=== PATIENT | female | born 1970 | race Caucasian/White ===

== ENCOUNTER 2020-12-28 06:45 | Inpatient (IN) ==
[2020-12-28 07:09] LABS: ABG BASE EXCESS 5.4 mmol/L (-2.0-2.0)
[2020-12-28 07:10] LABS: ABG HCO3 32.6 mmol/L (22-26)
[2020-12-28 07:11] LABS: ABG ALLEN TEST POS
--- NOTE | 2020-12-28 07:29 | DR.SOBA ---
HPI Time Seen Time Seen by Provider: 12/28/20 07:17 Primary Care Physician Primary Care Physician: nfd Complaints Chief Complaint Doctors Comments: left [facility] from [facility] yesterday after 2 day stay for PNA, sepsis. O2 sats 73% on arrival. Chief Complaint:: PT STATED SHE WAS HOSPITALIZED IN [place] AND LEFT BECAUSE SHE STATED "THEY WERE CRAZY AND WERE MEAN". PT SAID SHE WAS HOSPITALIZED FOR SEPSIS AND PNEUMONIA. COVID-19 Coronavirus symptoms experienced: Coughing and Shortness of Breath Reviewed Nurses Notes Reviewed: Yes Source History Provided: Patient Mode of Arrival Mode of Arrival: Wheelchair Timing Onset of Chief Complaint: 12/24/20 PMH PMH Past Medical History: No Past Surgical History: Yes Surgical History: Family History History of Family Medical Conditions: No Family Medical History: Cancer Social History Does patient currently use any type of tobacco product: No Have you used tobacco products in the last 12 months: No Type of Tobacco Use: MARIJUANA Does any household member use tobacco: No Alcohol Use: Occasionally Do you use any recreational Drugs:: No Lives With: Family Lives Where: Home Infectious screening In the last 2 months have you had wt loss of >10#?: NO Have you had fever, night sweats or hemotysis?: No Have you traveled outside the country in the last 6 months?: No Isolation: Standard ROS Review of Systems Constitutional: See HPI Eyes: No Symptoms Reported ENTM: No Symptoms Reported Respiratoy: See HPI Cardiovascular: No Symptoms Reported Gastrointestinal/Abdominal: No Symptoms Reported Genitourinary: No Symptoms Reported Neurological: No Symptoms Reported Musculoskeletal: No Symptoms Reported Integumentary: No Symptoms Reported Hematologic/Lymphatic: No Symptoms Reported Endocrine: No Symptoms Reported All Other Systems: Reviewed and Negative PE Vital Signs Vitals: Pulse Rate 100 Respiratory Rate 26 Blood Pressure [Left Arm] 155/86 Blood Pressure 175/95 O2 Sat by Pulse Oximetry 85 General General Appearance: Alert, Anxious and In Distress Head Head Exam: Normal Inspection and Atraumatic Eyes Eye exam: Normal Appearance ENT ENT Exam: Normal Exam Neck Neck Exam: Normal Inspection Respiratory Respiratory Exam: negative Chest Wall Tenderness and Respiratory Distress Respiratory Exam: Bilateral: Rales, Bilateral: Rhonchi and Bilateral: Decreased Breath Sounds Cardiovascular Cardiovascular Exam: Regular Rate and Normal Heart Sounds Abdominal Exam Abdominal Exam: Normal Inspection, Normal Bowel Sounds and Soft; negative Tenderness and Guarding Extremities Extremities Exam: Normal Inspection and Full ROM Back Back Exam: Normal Inspection and Full ROM Neurologic Neurological Exam: Alert and Oriented X3 Skin Skin Exam: Warm, Dry and Intact ROR Labs Reviewed Result Diagrams: 12/28/20 06:55 12/28/20 06:55 Laboratory: WBC 19.5 X10^3/uL (3.6-10.0) H 12/28/20 06:55 RBC 4.66 X10^6/uL (3.5-5.4) 12/28/20 06:55 Hgb 12.2 g/dL (12.0-16.0) 12/28/20 06:55 Hct 39.3 % (36.0-47.0) 12/28/20 06:55 MCV 84.4 fL (80.0-100.0) 12/28/20 06:55 MCH 26.1 pg (27.0-34.0) L 12/28/20 06:55 MCHC 31.0 g/dL (33.0-35.0) L 12/28/20 06:55 RDW 15.9 % (11.6-16.5) 12/28/20 06:55 Plt Count 242 X10^3/uL (150.0-450.0) 12/28/20 06:55 MPV 9.2 fL (7.4-11.0) 12/28/20 06:55 Neut % (Auto) 91.7 % (42.0-75.0) H 12/28/20 06:55 Lymph % (Auto) 2.1 % (21.0-51.0) L 12/28/20 06:55 [place] % (Auto) 5.4 % (0.0-13.0) 12/28/20 06:55 Eos % (Auto) 0.2 % (0.9-2.9) L 12/28/20 06:55 Baso % (Auto) 0.6 % (0.2-1.0) 12/28/20 06:55 Neut # (Auto) 17.8 x10^3/uL (2.2-4.8) H 12/28/20 06:55 Lymph # (Auto) 0.4 X10^3/uL (1.3-2.9) L 12/28/20 06:55 [place] # (Auto) 1.1 x10^3/uL (0.3-0.8) H 12/28/20 06:55 Eos # (Auto) 0.0 x10^3/uL (0.0-0.2) 12/28/20 06:55 Baso # (Auto) 0.1 X10^3/uL (0.0-0.1) 12/28/20 06:55 Absolute Nucleated RBC 0.1 /100WBC 12/28/20 06:55 Sample Site Lr 12/28/20 07:02 ABG pH 7.350 (7.35-7.45) 12/28/20 07:02 ABG pCO2 59.0 mmHg (35.0-45.0) H* 12/28/20 07:02 ABG pO2 48.0 mmHg (80.0-100.0) L* 12/28/20 07:02 ABG HCO3 32.6 mmol/L (22-26) H* 12/28/20 07:02 ABG O2 Saturation 81.0 % (90-100) L* 12/28/20 07:02 ABG Base Excess 5.4 mmol/L (-2.0-2.0) H 12/28/20 07:02 Raman Test Pos 12/28/20 07:02 A-a Gradient 28.0 mmHg 12/28/20 07:02 FiO2 21.0 12/28/20 07:02 Blood Gas Comments Pt iona well cdn 12/28/20 07:02 Influenza Type A Ag Negative-presumptive (NEGATIVE) 12/28/20 07:38 Influenza Type B Ag Negative-presumptive (NEGATIVE) 12/28/20 07:38 Opioid Opioid Risk Tool Total: 0 Total Score Risk Category: Low Risk Copyright: Vito GONZALEZ predicting aberrant behaviors Diagnosis Discharge Problem: Pneumonia, Dyspnea ADDITIONAL NOTES Additional Notes Additional Notes: handed off to dr lutz
--- NOTE | 2020-12-28 07:30 | RAD ---
HISTORYSOBSTUDYCHEST, 1 VIEWCOMPARISONNoneTECHNIQUEAP view of the chestFINDINGSCardiac and mediastinal contours are within normal limits. Airspace opacity in the right mid and upper lung. No discernible pleural effusion or pneumothorax. Soft tissue attenuation limits evaluation.IMPRESSIONLarge airspace opacity in the right mid and upper lung may represent pneumonia but neoplasm is not excluded. Recommend follow-up to document resolution.Electronically signed by: Bryan Gauthier (December 28, 2020 07:27:45)
[2020-12-28] MEDS ORDERED: DUONEB 0.5 MG/3 MG (3 mL) NEB ONE ×4 (07:38→23:46)
[2020-12-28] MEDS ORDERED: SALINE 0.9% 3 ML NEB TX ONE (07:39)
[2020-12-28] MEDS ORDERED: SALINE 0.9% 3 ML NEB TX NEB ONE ×3 (07:44)
[2020-12-28 07:52] LABS: BASOPHILS # (AUTO) 0.1 X10^3/uL (0.0-0.1); BASOPHILS % (AUTO) 0.6 % (0.2-1.0); EOSINOPHILS % (AUTO) 0.2 % (0.9-2.9); HEMATOCRIT 39.3 % (36.0-47.0); HEMOGLOBIN 12.2 g/dL (12.0-16.0); LYMPHOCYTES # (AUTO) 0.4 X10^3/uL (1.3-2.9); LYMPHOCYTES % (AUTO) 2.1 % (21.0-51.0); MEAN CORPUSCULAR HEMOGLOBIN 26.1 pg (27.0-34.0); MEAN CORPUSCULAR VOLUME 84.4 fL (80.0-100.0); MEAN PLATELET VOLUME 9.2 fL (7.4-11.0); MONOCYTES # (AUTO) 1.1 x10^3/uL (0.3-0.8); MONOCYTES % (AUTO) 5.4 % (0.0-13.0); NEUTROPHILS # (AUTO) 17.8 x10^3/uL (2.2-4.8); NEUTROPHILS % (AUTO) 91.7 % (42.0-75.0); PLATELET COUNT 242 X10^3/uL (150.0-450.0); RED BLOOD COUNT 4.66 X10^6/uL (3.5-5.4); RED CELL DISTRIBUTION WIDTH 15.9 % (11.6-16.5); WHITE BLOOD COUNT 19.5 X10^3/uL (3.6-10.0)
[2020-12-28] MEDS ORDERED: ROCEPHIN 1 GRAM IV PREMIX 1 G/50 ML IV.SOLN. IV ONE ×2 (07:53→08:13)
[2020-12-28 08:01] LABS: BLOOD UREA NITROGEN 28 mg/dL (7-18); CALCIUM 8.9 mg/dL (8.5-10.1); CARBON DIOXIDE 28.9 mmol/L (21-32); CHLORIDE 103 mmol/L (98-107); SODIUM 141 mmol/L (136-145); TROPONIN I < 0.02 ng/mL (0-1.5); eGFR NON BLACK RACES 56 (>60)
[2020-12-28 08:05] LABS: ALANINE AMINOTRANSFERASE 25 Units/L (12-78); ALBUMIN 2.1 g/dL (3.4-5.0); ALKALINE PHOSPHATASE 106 Units/L (46-116); ASPARTATE AMINO TRANSFERASE 26 Units/L (15-37); CKMB % 0.8 % (<4); COR CA(FOR HYPOALB) 10.4 mg/dL (8.5-10.1); CREATINE KINASE 119 Units/L (26-192); CREATINE KINASE MB < 1.0 ng/mL (0-4.0); MAGNESIUM 2.2 mg/dL (1.7-2.9); TOTAL PROTEIN 7.1 g/dL (6.4-8.2)
[2020-12-28 08:24] LABS: BAND NEUTROPHILS % 26 % (0-10); METAMYELOCYTES % 3; PLATELET MORPHOLOGY COMMENT NORMAL (NORMAL)
[2020-12-28] MEDS ORDERED: ZITHROMAX INJ 500 MG VIAL 500 MG in NS 250 ML IV 250 ML IV SCH (08:28)
[2020-12-28] MEDS ORDERED: SOLU-Medrol 125 MG VIAL IVP ONE (08:36)
[2020-12-28] MEDS ORDERED: NS 250 ML IV 250 ML IV ONE ×2 (08:57→11:16)
[2020-12-28] MEDS ORDERED: ZITHROMAX INJ 500 MG VIAL IV ONE (08:57)
[2020-12-28] MEDS ORDERED: SOLU-Medrol 125 MG VIAL ONE (08:57)
[2020-12-28] MEDS ORDERED: NS 1000 ML 1,000 ML ONE (10:02)
[2020-12-28] MEDS: NS 1000 ML 1,000 ML IV SCH ×2 (10:04→20:25)
[2020-12-28] MEDS: ZOSYN VIAL 4.5 GRAMS 4.5 G in NS 100 ML IV + SPIKE MINIBAG* 100 ML IV SCH ×3 (11:18→21:29)
[2020-12-28] MEDS: DUONEB 0.5 MG/3 MG (3 mL) NEB SCH ×3 (12:56→21:33)
[2020-12-28] MEDS: NORVASC TAB 10 MG PO SCH (14:35)
[2020-12-28] MEDS: NICOTINE PATCH TD SCH (14:35)
[2020-12-28] MEDS: NORCO 5/325 MG TAB PO PRN ×2 (14:36→21:30)
--- NOTE | 2020-12-28 14:50 | DR.H&P ---
H&P History & Physical for Day of: H&P Date: 12/28/20 Chief Complaint Chief Complaint: Fever, chills Shortness of breath Allergies Allergies Allergy/AdvReac Type Severity Reaction Status Date / Time No Known Drug Allergies Allergy Verified 03/02/18 11:53 History of Present Illness History of Present Illness: Pt is a 50 year old female with past medical history of Hypertension, SUKUMAR, presenting with symptoms of shortness of fever, chills, and shortness of breath that has been progressively getting worse for the past week. Pt states symptoms started last Sunday and got significantly worse over the weekend. She went to [facility] yesterday and was admitted for pneumonia. Pt left AMA from hospital early this morning due to concerns stating "they were crazy and were mean". Pt came to [facility] ED due to dyspnea and shortness of breath. Labs/imaging: Wbc 19.5, Hgb 12.2, Plt 242, Na 144, K 4.2, Creatinine 0.91, Glucose 105, D-dimer 3.73, LA 1.1, BNP 97.7, Flu and COVID-19 negative, Sputum culture pending, ABG:pH 7.35, pCO2 59, pO2 48, HCO3 32, O2 sat 81% on room air. CXR: Large airspace opacity in the right mid and upper lung may represent pneumonia but neoplasm is not excluded. Recommend follow-up to document resolution. Pt had elevated D-dimer and has had CTA of chest at [facility] yesterday that was negative for pulmonary embolus and showed diffuse bilateral infiltrates. Will start on antibiotics Levaquin and Zosyn, scheduled Bronchodilators, supplemental O2. Pt is hypertensive, start on norvasc. Will continue to monitor and follow up labs/imaging in the morning. Past Medical History Past Medical History: Hypertension and Sleep Apnea Past Surgical History Surgical History: Family History Family Medical History: Cancer Social History Does patient currently use any type of tobacco product: Yes Have you used tobacco products in the last 12 months: No Type of Tobacco Use: Cigarettes How many years tobacco product used: 30 Does any household member use tobacco: No Alcohol Use: Occasionally Drug Use: Marijuana Medications Home Medications: No Known Drug Allergies Allergy (Verified 03/02/18 11:53) Labs Result Diagrams: 12/29/20 04:30 12/29/20 04:30 Labs: Laboratory WBC 19.5 X10^3/uL (3.6-10.0) H 12/28/20 06:55 RBC 4.66 X10^6/uL (3.5-5.4) 12/28/20 06:55 Hgb 12.2 g/dL (12.0-16.0) 12/28/20 06:55 Hct 39.3 % (36.0-47.0) 12/28/20 06:55 MCV 84.4 fL (80.0-100.0) 12/28/20 06:55 MCH 26.1 pg (27.0-34.0) L 12/28/20 06:55 MCHC 31.0 g/dL (33.0-35.0) L 12/28/20 06:55 RDW 15.9 % (11.6-16.5) 12/28/20 06:55 Plt Count 242 X10^3/uL (150.0-450.0) 12/28/20 06:55 Plt Count Comment Adequate (ADEQUATE) 12/28/20 06:55 MPV 9.2 fL (7.4-11.0) 12/28/20 06:55 Neut % (Auto) 91.7 % (42.0-75.0) H 12/28/20 06:55 Lymph % (Auto) 2.1 % (21.0-51.0) L 12/28/20 06:55 [place] % (Auto) 5.4 % (0.0-13.0) 12/28/20 06:55 Eos % (Auto) 0.2 % (0.9-2.9) L 12/28/20 06:55 Baso % (Auto) 0.6 % (0.2-1.0) 12/28/20 06:55 Neut # (Auto) 17.8 x10^3/uL (2.2-4.8) H 12/28/20 06:55 Lymph # (Auto) 0.4 X10^3/uL (1.3-2.9) L 12/28/20 06:55 [place] # (Auto) 1.1 x10^3/uL (0.3-0.8) H 12/28/20 06:55 Eos # (Auto) 0.0 x10^3/uL (0.0-0.2) 12/28/20 06:55 Baso # (Auto) 0.1 X10^3/uL (0.0-0.1) 12/28/20 06:55 Absolute Nucleated RBC 0.1 /100WBC 12/28/20 06:55 Total Counted 100 12/28/20 06:55 Neutrophils % (Manual) 55 % (39-76) 12/28/20 06:55 Band Neutrophils % 26 % (0-10) H 12/28/20 06:55 Lymphocytes % (Manual) 6 % (13-43) L 12/28/20 06:55 Monocytes % (Manual) 10 % (4-9) H 12/28/20 06:55 Metamyelocytes % 3 12/28/20 06:55 Plt Morphology Comment Normal (NORMAL) 12/28/20 06:55 RBC Morphology Normal (NORMAL) 12/28/20 06:55 PT 12.8 SECONDS (11.8-14.3) 12/28/20 06:55 INR Target Range - 12/28/20 06:55 INR 1.01 (0.8-1.3) 12/28/20 06:55 APTT 25.0 SECONDS (22.9-36.5) 12/28/20 06:55 PTT Comment - 12/28/20 06:55 D-Dimer 3.33 ug/ml (0.0-0.57) H* 12/28/20 06:55 Sample Site Lr 12/28/20 07:02 ABG pH 7.350 (7.35-7.45) 12/28/20 07:02 ABG pCO2 59.0 mmHg (35.0-45.0) H* 12/28/20 07:02 ABG pO2 48.0 mmHg (80.0-100.0) L* 12/28/20 07:02 ABG HCO3 32.6 mmol/L (22-26) H* 12/28/20 07:02 ABG O2 Saturation 81.0 % (90-100) L* 12/28/20 07:02 ABG Base Excess 5.4 mmol/L (-2.0-2.0) H 12/28/20 07:02 Raman Test Pos 12/28/20 07:02 A-a Gradient 28.0 mmHg 12/28/20 07:02 FiO2 21.0 12/28/20 07:02 Blood Gas Comments Pt iona well cdn 12/28/20 07:02 Sodium 141 mmol/L (136-145) 12/28/20 06:55 Corrected Sodium TNP 12/28/20 06:55 Potassium 4.0 mmol/L (3.5-5.1) 12/28/20 06:55 Chloride 103 mmol/L (98-107) 12/28/20 06:55 Carbon Dioxide 28.9 mmol/L (21-32) 12/28/20 06:55 BUN 28 mg/dL (7-18) H 12/28/20 06:55 Creatinine 1.10 mg/dL (0.55-1.02) H 12/28/20 06:55 Est GFR (MDRD) Af Amer > 60 (>60) 12/28/20 06:55 Est GFR (MDRD) Non-Af 56 (>60) L 12/28/20 06:55 Glucose 101 mg/dL (65-99) H 12/28/20 06:55 POC Glucose (mg/dL) 111 mg/dL (65-99) H 12/28/20 11:53 Lactic Acid 1.1 mmol/L (0.4-2.0) 12/28/20 06:55 Calcium 8.9 mg/dL (8.5-10.1) 12/28/20 06:55 Corrected Calcium 10.4 mg/dL (8.5-10.1) H 12/28/20 06:55 Magnesium 2.2 mg/dL (1.7-2.9) 12/28/20 06:55 Total Bilirubin 0.20 mg/dL (0.2-1.0) 12/28/20 06:55 AST 26 Units/L (15-37) 12/28/20 06:55 ALT 25 Units/L (12-78) 12/28/20 06:55 Alkaline Phosphatase 106 Units/L (46-116) 12/28/20 06:55 Creatine Kinase 119 Units/L (26-192) 12/28/20 06:55 CK-MB (CK-2) < 1.0 ng/mL (0-4.0) 12/28/20 06:55 CK/CKMB % Calc 0.8 % (<4) 12/28/20 06:55 Troponin I < 0.02 ng/mL (0-1.5) 12/28/20 06:55 B-Natriuretic Peptide 97.7 pg/mL (0-79) H 12/28/20 06:55 Total Protein 7.1 g/dL (6.4-8.2) 12/28/20 06:55 Albumin 2.1 g/dL (3.4-5.0) L 12/28/20 06:55 Globulin 5.0 g/dL (2.5-4.5) H 12/28/20 06:55 Albumin/Globulin Ratio 0.4 Ratio (1.1-2.1) L 12/28/20 06:55 Influenza Type A Ag Negative-presumptive (NEGATIVE) 12/28/20 07:38 Influenza Type B Ag Negative-presumptive (NEGATIVE) 12/28/20 07:38 SARS CoV-2 RNA Rapid MINERVA Negative (NEGATIVE) 12/28/20 07:38 Review of Systems Constitutional: Fever and Chills Eyes: No Symptoms Reported ENT: No Symptoms Reported Respiratory: Cough, Shortness of Breath and Wheezing Cardiovascular: No Symptoms Reported Gastrointestinal: No Symptoms Reported Genitourinary: No Symptoms Reported Musculoskeletal: No Symptoms Reported Skin: No Symptoms Reported Neurological: No Symptoms Reported Physical Exam Vital Signs: Temperature 98.0 F Pulse Rate [Apical] 98 Pulse Rate 97 Respiratory Rate 22 Blood Pressure [Left Arm] 165/103 Blood Pressure 186/90 O2 Sat by Pulse Oximetry 92 Oriented: Normal Eyes: Normal Ear: Normal Nose: Normal Throat: Normal Respiratory: Diminished Throughout, Rales Throughout and Wheezes Throughout Cardiovascular: Normal : Normal Auscultation: Bowel Sounds: Normal Palpation: Normal Tenderness: Normal Skin: Normal Musculoskeletal: Normal Psychiatric: Normal Mood Description: Calm and Appropriate Affect: Normal Speech Pattern: Clear and Appropriate Assessment/Plan (1) Pneumonia: Qualifiers: Laterality: bilateral Lung location: unspecified part of lung Pneumonia type: due to unspecified organism Qualified Code(s): J18.9 - Pneumonia, unspecified organism Status: Acute Plan: Supplemental O2, Bronchodilators Antibiotics: Levaquin + Zosyn Review H&P Reviewed: Yes Patient was examined?: Yes
[2020-12-28] MEDS: PULMICORT NEB TX 0.5 MG NEB SCH (21:33)
[2020-12-29] MEDS: DUONEB 0.5 MG/3 MG (3 mL) NEB SCH ×6 (00:14→20:30)
[2020-12-29] MEDS: TYLENOL 325 MG TAB PO PRN (03:08)
[2020-12-29 04:56] LABS: BASOPHILS % (AUTO) 0.1 % (0.2-1.0); HEMATOCRIT 38.5 % (36.0-47.0); HEMOGLOBIN 11.8 g/dL (12.0-16.0); LYMPHOCYTES # (AUTO) 1.2 X10^3/uL (1.3-2.9); LYMPHOCYTES % (AUTO) 7.4 % (21.0-51.0); MEAN CORPUSCULAR HGB CONC 30.7 g/dL (33.0-35.0); MEAN CORPUSCULAR VOLUME 84.7 fL (80.0-100.0); MEAN PLATELET VOLUME 8.9 fL (7.4-11.0); MONOCYTES # (AUTO) 1.2 x10^3/uL (0.3-0.8); MONOCYTES % (AUTO) 7.1 % (0.0-13.0); NEUTROPHILS # (AUTO) 13.8 x10^3/uL (2.2-4.8); NEUTROPHILS % (AUTO) 85.4 % (42.0-75.0); PLATELET COUNT 279 X10^3/uL (150.0-450.0); RED BLOOD COUNT 4.54 X10^6/uL (3.5-5.4); RED CELL DISTRIBUTION WIDTH 15.9 % (11.6-16.5); WHITE BLOOD COUNT 16.2 X10^3/uL (3.6-10.0)
[2020-12-29 05:07] LABS: ALANINE AMINOTRANSFERASE 44 Units/L (12-78); ALKALINE PHOSPHATASE 80 Units/L (46-116); ASPARTATE AMINO TRANSFERASE 30 Units/L (15-37); BLOOD UREA NITROGEN 22 mg/dL (7-18); CALCIUM 8.7 mg/dL (8.5-10.1); CARBON DIOXIDE 30.6 mmol/L (21-32); CHLORIDE 106 mmol/L (98-107); COR CA(FOR HYPOALB) 10.3 mg/dL (8.5-10.1); CREATININE 0.91 mg/dL (0.55-1.02); SODIUM 144 mmol/L (136-145); TOTAL PROTEIN 6.6 g/dL (6.4-8.2); eGFR NON BLACK RACES > 60 (>60)
[2020-12-29] MEDS: ZOSYN VIAL 4.5 GRAMS 4.5 G in NS 100 ML IV + SPIKE MINIBAG* 100 ML IV SCH ×3 (05:16→21:43)
[2020-12-29 05:25] LABS: HYPOCHROMASIA SLIGHT; METAMYELOCYTES % 5; PLATELET MORPHOLOGY COMMENT NORMAL (NORMAL)
[2020-12-29] MEDS: NORCO 5/325 MG TAB PO PRN ×3 (06:12→21:46)
[2020-12-29] MEDS: PULMICORT NEB TX 0.5 MG NEB SCH ×2 (08:03→20:30)
[2020-12-29] MEDS: NORVASC TAB 10 MG PO SCH (09:35)
[2020-12-29] MEDS: LOVENOX INJ 40 MG SYR SC SCH (09:36)
[2020-12-29] MEDS: LEVAQUIN PREMIX IV 500 MG 500 MG/100 ML BAG IV SCH (09:39)
[2020-12-29] MEDS: NS 1000 ML 1,000 ML IV SCH (09:41)
[2020-12-29] MEDS: NICOTINE PATCH TD SCH (09:42)
--- NOTE | 2020-12-29 10:13 | RAD ---
HISTORYPNEUMONIA, HYPOXEMIASTUDYCHEST, 1 [id number]/04/2021FINDINGSThe trachea is midline. There is mild cardiomegaly stable since prior study. There is again seen a focal alveolar radiopacity involving the right upper lobe as well as the superior segment of the right lower lobe. No significant change since prior study. There is also a left lower lobe radiopacity probably atelectases. No evidence of pneumothoraxIMPRESSIONPersistent large alveolar radiopacity involving the right upper lobe and the superior segment of the right lower lobe, possible developing of an empyema.Electronically signed by: Rina Olson (December 29, 2020 10:10:24)
--- NOTE | 2020-12-29 10:43 | PCM.PROG ---
Progress Note Progress Note for Day of Date of Exam: 12/29/20 Subjective Subjective: Pt is a 50 year old female with past medical history of Hypertension, SUKUMAR, admitted for pneumonia. This morning she reports some improvement in her breathing. Still has shortness of breath. She is currently requiring 3L nasal cannula. Labs/imaging: Wbc 16.2, Hgb 11.8, Plt 279, Na 144, K 4.2, Creatinine 0.91, Glucose 105, BNP 97.7, Sputum culture pending. Treatment course includes: antibiotics Levaquin and Zosyn, scheduled Bronchodilators, supplemental O2, Norvasc. CXR was obtained and revealed: Persistent large alveolar radiopacity involving the right upper lobe and the superior segment of the right lower lobe, possible developing of an empyema. Will get CT chest for further evaluation. Elevated BNP, order Echo. Plan to wean supplemental O2 as tolerated. Otherwise continue current plan of care. Monitor and follow up labs/imaging in the morning. Past Medical Family Social History Past Med/Fam/Surg Hx: No changes since H&P Allergies: Allergies No Known Drug Allergies Allergy (Verified 03/02/18 11:53) Review of Systems ROS: No change since H&P Vital Signs and I&O's Vital Signs: Temperature 97.8 F Pulse Rate [Apical] 95 Pulse Rate 100 Respiratory Rate 26 Blood Pressure [Left Arm] 166/99 Blood Pressure 186/90 O2 Sat by Pulse Oximetry 94 Intake and Output: Intake & Output 12/26/20 12/27/20 12/28/20 12/29/20 23:59 23:59 23:59 23:59 Intake Total 0780 / 3366 1799 / 1799 Balance 2416 / 2866 1799 / 1799 Physical Exam Oriented: Normal Eyes: Normal Ear: Normal Nose: Normal Throat: Normal Respiratory: Right, Left, Diminished, Wheezes and Rales Cardiovascular: Normal : Normal Auscultation: Bowel Sounds: Normal Tenderness: Normal Skin: Normal Musculoskeletal: Normal Psychiatric: Normal Mood Description: Calm and Appropriate Affect: Normal Speech Pattern: Clear and Appropriate Laboratory and Diagnostics Result Diagrams: 12/29/20 04:30 12/29/20 04:30 Labs: Laboratory WBC 16.2 X10^3/uL (3.6-10.0) H 12/29/20 04:30 RBC 4.54 X10^6/uL (3.5-5.4) 12/29/20 04:30 Hgb 11.8 g/dL (12.0-16.0) L 12/29/20 04:30 Hct 38.5 % (36.0-47.0) 12/29/20 04:30 MCV 84.7 fL (80.0-100.0) 12/29/20 04:30 MCH 26.0 pg (27.0-34.0) L 12/29/20 04:30 MCHC 30.7 g/dL (33.0-35.0) L 12/29/20 04:30 RDW 15.9 % (11.6-16.5) 12/29/20 04:30 Plt Count 279 X10^3/uL (150.0-450.0) 12/29/20 04:30 Plt Count Comment Adequate (ADEQUATE) 12/29/20 04:30 MPV 8.9 fL (7.4-11.0) 12/29/20 04:30 Neut % (Auto) 85.4 % (42.0-75.0) H 12/29/20 04:30 Lymph % (Auto) 7.4 % (21.0-51.0) L 12/29/20 04:30 [place] % (Auto) 7.1 % (0.0-13.0) 12/29/20 04:30 Eos % (Auto) 0.0 % (0.9-2.9) L 12/29/20 04:30 Baso % (Auto) 0.1 % (0.2-1.0) L 12/29/20 04:30 Neut # (Auto) 13.8 x10^3/uL (2.2-4.8) H 12/29/20 04:30 Lymph # (Auto) 1.2 X10^3/uL (1.3-2.9) L 12/29/20 04:30 [place] # (Auto) 1.2 x10^3/uL (0.3-0.8) H 12/29/20 04:30 Eos # (Auto) 0.0 x10^3/uL (0.0-0.2) 12/29/20 04:30 Baso # (Auto) 0.0 X10^3/uL (0.0-0.1) 12/29/20 04:30 Absolute Nucleated RBC 0.2 /100WBC 12/29/20 04:30 Total Counted 100 12/29/20 04:30 Neutrophils % (Manual) 77 % (39-76) H 12/29/20 04:30 Band Neutrophils % 26 % (0-10) H 12/28/20 06:55 Lymphocytes % (Manual) 17 % (13-43) 12/29/20 04:30 Monocytes % (Manual) 1 % (4-9) L 12/29/20 04:30 Metamyelocytes % 5 12/29/20 04:30 Plt Morphology Comment Normal (NORMAL) 12/29/20 04:30 RBC Morphology Abnormal (NORMAL) A 12/29/20 04:30 Hypochromasia Slight A 12/29/20 04:30 PT 12.8 SECONDS (11.8-14.3) 12/28/20 06:55 INR Target Range - 12/28/20 06:55 INR 1.01 (0.8-1.3) 12/28/20 06:55 APTT 25.0 SECONDS (22.9-36.5) 12/28/20 06:55 PTT Comment - 12/28/20 06:55 D-Dimer 3.33 ug/ml (0.0-0.57) H* 12/28/20 06:55 Sample Site Lr 12/28/20 07:02 ABG pH 7.350 (7.35-7.45) 12/28/20 07:02 ABG pCO2 59.0 mmHg (35.0-45.0) H* 12/28/20 07:02 ABG pO2 48.0 mmHg (80.0-100.0) L* 12/28/20 07:02 ABG HCO3 32.6 mmol/L (22-26) H* 12/28/20 07:02 ABG O2 Saturation 81.0 % (90-100) L* 12/28/20 07:02 ABG Base Excess 5.4 mmol/L (-2.0-2.0) H 12/28/20 07:02 Raman Test Pos 12/28/20 07:02 A-a Gradient 28.0 mmHg 12/28/20 07:02 FiO2 21.0 12/28/20 07:02 Blood Gas Comments Pt iona well cdn 12/28/20 07:02 Sodium 144 mmol/L (136-145) 12/29/20 04:30 Corrected Sodium TNP 12/29/20 04:30 Potassium 4.2 mmol/L (3.5-5.1) 12/29/20 04:30 Chloride 106 mmol/L (98-107) 12/29/20 04:30 Carbon Dioxide 30.6 mmol/L (21-32) 12/29/20 04:30 BUN 22 mg/dL (7-18) H 12/29/20 04:30 Creatinine 0.91 mg/dL (0.55-1.02) 12/29/20 04:30 Est GFR (MDRD) Af Amer > 60 (>60) 12/29/20 04:30 Est GFR (MDRD) Non-Af > 60 (>60) 12/29/20 04:30 Glucose 105 mg/dL (65-99) H 12/29/20 04:30 POC Glucose (mg/dL) 111 mg/dL (65-99) H 12/28/20 11:53 Lactic Acid 1.1 mmol/L (0.4-2.0) 12/28/20 06:55 Calcium 8.7 mg/dL (8.5-10.1) 12/29/20 04:30 Corrected Calcium 10.3 mg/dL (8.5-10.1) H 12/29/20 04:30 Magnesium 2.2 mg/dL (1.7-2.9) 12/28/20 06:55 Total Bilirubin 0.10 mg/dL (0.2-1.0) L 12/29/20 04:30 AST 30 Units/L (15-37) 12/29/20 04:30 ALT 44 Units/L (12-78) 12/29/20 04:30 Alkaline Phosphatase 80 Units/L (46-116) 12/29/20 04:30 Creatine Kinase 119 Units/L (26-192) 12/28/20 06:55 CK-MB (CK-2) < 1.0 ng/mL (0-4.0) 12/28/20 06:55 CK/CKMB % Calc 0.8 % (<4) 12/28/20 06:55 Troponin I < 0.02 ng/mL (0-1.5) 12/28/20 06:55 B-Natriuretic Peptide 97.7 pg/mL (0-79) H 12/28/20 06:55 Total Protein 6.6 g/dL (6.4-8.2) 12/29/20 04:30 Albumin 2.0 g/dL (3.4-5.0) L 12/29/20 04:30 Globulin 4.6 g/dL (2.5-4.5) H 12/29/20 04:30 Albumin/Globulin Ratio 0.4 Ratio (1.1-2.1) L 12/29/20 04:30 Influenza Type A Ag Negative-presumptive (NEGATIVE) 12/28/20 07:38 Influenza Type B Ag Negative-presumptive (NEGATIVE) 12/28/20 07:38 SARS CoV-2 RNA Rapid MINERVA Negative (NEGATIVE) 12/28/20 07:38 Plan (1) Pneumonia: Status: Acute Qualifiers: Laterality: bilateral Lung location: unspecified part of lung Pneumonia type: due to unspecified organism Qualified Code(s): J18.9 - Pn eumonia, unspecified organism Plan: Supplemental O2, Bronchodilators Antibiotics: Levaquin + Zosyn
[2020-12-29] MEDS ORDERED: NS 100 ML IV 100 ML IV ONE (11:54)
--- NOTE | 2020-12-29 13:02 | CT ---
HISTORYPNEUMONIASTUDYCT chest with IV contrastCOMPARISONX-ray from same dayTECHNIQUEMultiple axial images of the chest were obtained from the thoracic inlet to the upper abdomenwith the administration of IV contrast. 85 cc Omnipaque 350 IV contrast. Sagittal and coronal reformations are performed. Dose reduction techniques including Automated Exposure Control (AEC) and adjustment of mA and kV were utilized.FINDINGSBilateral alveolar infiltrates are seen with air bronchograms. These involve the right upper and middle lobes and left lower lobe of the lungs. Findings are probably due to pneumonia. Probable small parapneumonic effusion on the left. Very minimal atelectasis at the right CP angle.Heart is normal in size. No pericardial effusion is seen. Thoracic aorta is normal in size without suggestion of dissection. There is an enlarged right paratracheal lymph node that measures 3.0 x 1.9 cm. Smaller AP window lymph nodes are seen. No definite hilar lymphadenopathy. The enlarged right paratracheal lymph node is probably reactive.IMPRESSIONProbable bilateral lobar pneumonia.Probably reactive lymph node in the right paratracheal region but it measures greater than 1.0 cm in the short axis.Continued x-ray follow up to document resolution of infiltrates is recommended. Consider possible follow-up CT, once infiltrates resolve, to assure decrease in size of the right paratracheal lymph node.Electronically signed by: Ar Holley (December 29, 2020 13:00:26)
[2020-12-29 13:14] VITALS: BMI 48.1
[2020-12-29] MEDS: ZOFRAN INJ 4 MG VIAL IVP PRN ×2 (15:38→21:43)
[2020-12-30] MEDS: TYLENOL 325 MG TAB PO PRN (00:19)
[2020-12-30] MEDS: DUONEB 0.5 MG/3 MG (3 mL) NEB SCH ×6 (00:31→21:12)
[2020-12-30 05:09] LABS: BASOPHILS % (AUTO) 0.2 % (0.2-1.0); HEMATOCRIT 40.1 % (36.0-47.0); HEMOGLOBIN 12.3 g/dL (12.0-16.0); LYMPHOCYTES # (AUTO) 1.3 X10^3/uL (1.3-2.9); LYMPHOCYTES % (AUTO) 6.6 % (21.0-51.0); MEAN CORPUSCULAR HEMOGLOBIN 25.8 pg (27.0-34.0); MEAN CORPUSCULAR HGB CONC 30.7 g/dL (33.0-35.0); MEAN CORPUSCULAR VOLUME 84.2 fL (80.0-100.0); MEAN PLATELET VOLUME 8.7 fL (7.4-11.0); MONOCYTES # (AUTO) 0.5 x10^3/uL (0.3-0.8); MONOCYTES % (AUTO) 2.7 % (0.0-13.0); NEUTROPHILS # (AUTO) 17.8 x10^3/uL (2.2-4.8); NEUTROPHILS % (AUTO) 90.5 % (42.0-75.0); PLATELET COUNT 295 X10^3/uL (150.0-450.0); RED BLOOD COUNT 4.76 X10^6/uL (3.5-5.4); RED CELL DISTRIBUTION WIDTH 16.2 % (11.6-16.5); WHITE BLOOD COUNT 19.6 X10^3/uL (3.6-10.0)
[2020-12-30 05:21] LABS: ALANINE AMINOTRANSFERASE 44 Units/L (12-78); ALBUMIN 1.8 g/dL (3.4-5.0); ALKALINE PHOSPHATASE 69 Units/L (46-116); ASPARTATE AMINO TRANSFERASE 22 Units/L (15-37); BLOOD UREA NITROGEN 11 mg/dL (7-18); CALCIUM 8.5 mg/dL (8.5-10.1); CARBON DIOXIDE 34.8 mmol/L (21-32); CHLORIDE 105 mmol/L (98-107); COR CA(FOR HYPOALB) 10.3 mg/dL (8.5-10.1); CREATININE 0.65 mg/dL (0.55-1.02); SODIUM 144 mmol/L (136-145); TOTAL PROTEIN 6.1 g/dL (6.4-8.2); eGFR NON BLACK RACES > 60 (>60)
[2020-12-30] MEDS: ZOSYN VIAL 4.5 GRAMS 4.5 G in NS 100 ML IV + SPIKE MINIBAG* 100 ML IV SCH ×3 (05:40→21:15)
[2020-12-30 06:01] LABS: PLATELET MORPHOLOGY COMMENT NORMAL (NORMAL)
--- NOTE | 2020-12-30 06:14 | RAD ---
HISTORYPNEUMONIA F/USTUDYCHEST, 1 [id number]/05/2021.TECHNIQUEAP view of the chestFINDINGSThe cardiac silhouette is stably enlarged. Mediastinal contours appear stable. No significant change in bilateral multifocal airspace opacities. Suspect small left pleural effusion. No discernible pneumothorax. Soft tissue attenuation limits evaluation.IMPRESSIONNo significant change. Bilateral multifocal pneumonia.Electronically signed by: Bryan Gauthier (December 30, 2020 06:12:39)
[2020-12-30] MEDS: NORCO 5/325 MG TAB PO PRN (08:08)
[2020-12-30] MEDS: NORVASC TAB 10 MG PO SCH (08:09)
[2020-12-30] MEDS: LEVAQUIN PREMIX IV 500 MG 500 MG/100 ML BAG IV SCH (08:09)
[2020-12-30] MEDS: NICOTINE PATCH TD SCH (08:10)
[2020-12-30] MEDS: LOVENOX INJ 40 MG SYR SC SCH (08:10)
[2020-12-30] MEDS ORDERED: NORCO 5/325 MG TAB PO PRN (08:21)
[2020-12-30] MEDS: PULMICORT NEB TX 0.5 MG NEB SCH ×2 (09:15→21:12)
--- NOTE | 2020-12-30 11:04 | PCM.PROG ---
Progress Note Progress Note for Day of Date of Exam: 12/30/20 Subjective Subjective: Pt is a 50 year old female with past medical history of Hypertension, SUKUMAR, admitted for multifocal bilateral pneumonia. This morning she reports no change in breathing status. She reports generalized musculoskeletal pain. She is currently requiring 3L nasal cannula. Labs/imaging: Wbc 19.6, Hgb 12.3, Plt 295, Na 144, K 3.7, Creatinine 0.65, Glucose 86, Sputum culture pending. Treatment course includes: antibiotics Levaquin and Zosyn, scheduled Bronchodilators, supplemental O2, Norvasc. CT Chest: Probable bilateral lobar pneumonia. Probably reactive lymph node in the right paratracheal region but it measures greater than 1.0 cm in the short axis. Continued x-ray follow up to document resolution of infiltrates is recommended. Consider possible follow-up CT, once infiltrates resolve, to assure decrease in size of the right paratracheal lymph node. Echo: EF 59%, and CXR this morning revealed no significant change. Bilateral multifocal pneumonia. Will order PT/OT, adjust pain medication. Plan to wean supplemental O2 as tolerated. Otherwise continue current plan of care. Monitor and follow up labs/imaging in the morning. Past Medical Family Social History Past Med/Fam/Surg Hx: No changes since H&P Allergies: Allergies No Known Drug Allergies Allergy (Verified 03/02/18 11:53) Review of Systems ROS: No change since H&P Vital Signs and I&O's Vital Signs: Temperature 98.5 F Pulse Rate [Apical] 96 Pulse Rate 93 Respiratory Rate 18 Blood Pressure [Left Arm] 180/94 Blood Pressure 186/90 O2 Sat by Pulse Oximetry 92 Intake and Output: Intake & Output 12/27/20 12/28/20 12/29/20 12/30/20 23:59 23:59 23:59 23:59 Intake Total 2866 / 2866 4119 / 4119 435 / 435 Balance 2866 / 2866 4119 / 4119 435 / 435 Physical Exam Oriented: Normal Eyes: Normal Ear: Normal Nose: Normal Throat: Normal Respiratory: Right, Left, Diminished, Wheezes and Rales Cardiovascular: Normal : Normal Auscultation: Bowel Sounds: Normal Tenderness: Normal Skin: Normal Musculoskeletal: Normal Psychiatric: Normal Mood Description: Calm and Appropriate Affect: Normal Speech Pattern: Clear and Appropriate Laboratory and Diagnostics Result Diagrams: 12/30/20 04:30 12/30/20 04:30 Labs: 12/29/20 16:55 Sputum - Expectorated Sputum Sputum Culture - Preliminary 12/29/20 16:55 Sputum - Expectorated Sputum - Final Laboratory WBC 19.6 X10^3/uL (3.6-10.0) H 12/30/20 04:30 RBC 4.76 X10^6/uL (3.5-5.4) 12/30/20 04:30 Hgb 12.3 g/dL (12.0-16.0) 12/30/20 04:30 Hct 40.1 % (36.0-47.0) 12/30/20 04:30 MCV 84.2 fL (80.0-100.0) 12/30/20 04:30 MCH 25.8 pg (27.0-34.0) L 12/30/20 04:30 MCHC 30.7 g/dL (33.0-35.0) L 12/30/20 04:30 RDW 16.2 % (11.6-16.5) 12/30/20 04:30 Plt Count 295 X10^3/uL (150.0-450.0) 12/30/20 04:30 Plt Count Comment Adequate (ADEQUATE) 12/30/20 04:30 MPV 8.7 fL (7.4-11.0) 12/30/20 04:30 Neut % (Auto) 90.5 % (42.0-75.0) H 12/30/20 04:30 Lymph % (Auto) 6.6 % (21.0-51.0) L 12/30/20 04:30 [place] % (Auto) 2.7 % (0.0-13.0) 12/30/20 04:30 Eos % (Auto) 0.0 % (0.9-2.9) L 12/30/20 04:30 Baso % (Auto) 0.2 % (0.2-1.0) 12/30/20 04:30 Neut # (Auto) 17.8 x10^3/uL (2.2-4.8) H 12/30/20 04:30 Lymph # (Auto) 1.3 X10^3/uL (1.3-2.9) 12/30/20 04:30 [place] # (Auto) 0.5 x10^3/uL (0.3-0.8) 12/30/20 04:30 Eos # (Auto) 0.0 x10^3/uL (0.0-0.2) 12/30/20 04:30 Baso # (Auto) 0.0 X10^3/uL (0.0-0.1) 12/30/20 04:30 Absolute Nucleated RBC 0.0 /100WBC 12/30/20 04:30 Total Counted 100 12/30/20 04:30 Neutrophils % (Manual) 87 % (39-76) H 12/30/20 04:30 Band Neutrophils % 26 % (0-10) H 12/28/20 06:55 Lymphocytes % (Manual) 13 % (13-43) 12/30/20 04:30 Monocytes % (Manual) 1 % (4-9) L 12/29/20 04:30 Metamyelocytes % 5 12/29/20 04:30 Plt Morphology Comment Normal (NORMAL) 12/30/20 04:30 RBC Morphology Normal (NORMAL) 12/30/20 04:30 Hypochromasia Slight A 12/29/20 04:30 PT 12.8 SECONDS (11.8-14.3) 12/28/20 06:55 INR Target Range - 12/28/20 06:55 INR 1.01 (0.8-1.3) 12/28/20 06:55 APTT 25.0 SECONDS (22.9-36.5) 12/28/20 06:55 PTT Comment - 12/28/20 06:55 D-Dimer 3.33 ug/ml (0.0-0.57) H* 12/28/20 06:55 Sample Site Lr 12/28/20 07:02 ABG pH 7.350 (7.35-7.45) 12/28/20 07:02 ABG pCO2 59.0 mmHg (35.0-45.0) H* 12/28/20 07:02 ABG pO2 48.0 mmHg (80.0-100.0) L* 12/28/20 07:02 ABG HCO3 32.6 mmol/L (22-26) H* 12/28/20 07:02 ABG O2 Saturation 81.0 % (90-100) L* 12/28/20 07:02 ABG Base Excess 5.4 mmol/L (-2.0-2.0) H 12/28/20 07:02 Raman Test Pos 12/28/20 07:02 A-a Gradient 28.0 mmHg 12/28/20 07:02 FiO2 21.0 12/28/20 07:02 Blood Gas Comments Pt iona well cdn 12/28/20 07:02 Sodium 144 mmol/L (136-145) 12/30/20 04:30 Corrected Sodium TNP 12/30/20 04:30 Potassium 3.7 mmol/L (3.5-5.1) 12/30/20 04:30 Chloride 105 mmol/L (98-107) 12/30/20 04:30 Carbon Dioxide 34.8 mmol/L (21-32) H 12/30/20 04:30 BUN 11 mg/dL (7-18) 12/30/20 04:30 Creatinine 0.65 mg/dL (0.55-1.02) 12/30/20 04:30 Est GFR (MDRD) Af Amer > 60 (>60) 12/30/20 04:30 Est GFR (MDRD) Non-Af > 60 (>60) 12/30/20 04:30 Glucose 86 mg/dL (65-99) 12/30/20 04:30 POC Glucose (mg/dL) 111 mg/dL (65-99) H 12/28/20 11:53 Lactic Acid 1.1 mmol/L (0.4-2.0) 12/28/20 06:55 Calcium 8.5 mg/dL (8.5-10.1) 12/30/20 04:30 Corrected Calcium 10.3 mg/dL (8.5-10.1) H 12/30/20 04:30 Magnesium 2.2 mg/dL (1.7-2.9) 12/28/20 06:55 Total Bilirubin 0.30 mg/dL (0.2-1.0) 12/30/20 04:30 AST 22 Units/L (15-37) 12/30/20 04:30 ALT 44 Units/L (12-78) 12/30/20 04:30 Alkaline Phosphatase 69 Units/L (46-116) 12/30/20 04:30 Creatine Kinase 119 Units/L (26-192) 12/28/20 06:55 CK-MB (CK-2) < 1.0 ng/mL (0-4.0) 12/28/20 06:55 CK/CKMB % Calc 0.8 % (<4) 12/28/20 06:55 Troponin I < 0.02 ng/mL (0-1.5) 12/28/20 06:55 B-Natriuretic Peptide 97.7 pg/mL (0-79) H 12/28/20 06:55 Total Protein 6.1 g/dL (6.4-8.2) L 12/30/20 04:30 Albumin 1.8 g/dL (3.4-5.0) L 12/30/20 04:30 Globulin 4.3 g/dL (2.5-4.5) 12/30/20 04:30 Albumin/Globulin Ratio 0.4 Ratio (1.1-2.1) L 12/30/20 04:30 Influenza Type A Ag Negative-presumptive (NEGATIVE) 12/28/20 07:38 Influenza Type B Ag Negative-presumptive (NEGATIVE) 12/28/20 07:38 SARS CoV-2 RNA Rapid MINERVA Negative (NEGATIVE) 12/28/20 07:38 Plan (1) Pneumonia: Status: Acute Qualifiers: Laterality: bilateral Lung location: unspecified part of lung Pneumonia type: due to unspecified organism Qualified Code(s): J18.9 - Pneumonia, unspecified organism Plan: Supplemental O2, Bronchodilators Antibiotics: Levaquin + Zosyn
[2020-12-30] MEDS: NS 1000 ML 1,000 ML IV SCH ×2 (11:30→20:40)
[2020-12-30] MEDS: ZOFRAN INJ 4 MG VIAL IVP PRN ×2 (11:40→20:40)
[2020-12-30] MEDS: NORCO 7.5/325 MG TAB PO PRN ×3 (11:40→23:04)
[2020-12-30] MEDS ORDERED: MAGIC MOUTHWASH MT PRN (20:34)
[2020-12-30] MEDS: NYSTATIN SUSP PO PRN (21:15)
[2020-12-30] MEDS: RESTORIL CAP 15 MG PO PRN (21:15)
[2020-12-31] MEDS: DUONEB 0.5 MG/3 MG (3 mL) NEB SCH ×6 (00:22→21:15)
[2020-12-31] MEDS: NORCO 7.5/325 MG TAB PO PRN (03:27)
[2020-12-31 04:52] LABS: BASOPHILS % (AUTO) 0.1 % (0.2-1.0); EOSINOPHILS % (AUTO) 0.1 % (0.9-2.9); HEMATOCRIT 39.8 % (36.0-47.0); HEMOGLOBIN 12.2 g/dL (12.0-16.0); LYMPHOCYTES # (AUTO) 0.9 X10^3/uL (1.3-2.9); LYMPHOCYTES % (AUTO) 3.7 % (21.0-51.0); MEAN CORPUSCULAR HEMOGLOBIN 25.8 pg (27.0-34.0); MEAN CORPUSCULAR HGB CONC 30.8 g/dL (33.0-35.0); MEAN PLATELET VOLUME 8.5 fL (7.4-11.0); MONOCYTES # (AUTO) 0.6 x10^3/uL (0.3-0.8); MONOCYTES % (AUTO) 2.5 % (0.0-13.0); NEUTROPHILS # (AUTO) 22.5 x10^3/uL (2.2-4.8); NEUTROPHILS % (AUTO) 93.6 % (42.0-75.0); PLATELET COUNT 401 X10^3/uL (150.0-450.0); RED BLOOD COUNT 4.73 X10^6/uL (3.5-5.4); WHITE BLOOD COUNT 24.1 X10^3/uL (3.6-10.0)
[2020-12-31 05:05] LABS: ALANINE AMINOTRANSFERASE 32 Units/L (12-78); ALBUMIN 1.8 g/dL (3.4-5.0); ALKALINE PHOSPHATASE 73 Units/L (46-116); ASPARTATE AMINO TRANSFERASE 17 Units/L (15-37); BLOOD UREA NITROGEN 10 mg/dL (7-18); CALCIUM 8.2 mg/dL (8.5-10.1); CARBON DIOXIDE 37.4 mmol/L (21-32); CHLORIDE 102 mmol/L (98-107); COR NA(FOR HYPERGLY) 143 mmol/L (136-145); SODIUM 143 mmol/L (136-145); TOTAL PROTEIN 6.2 g/dL (6.4-8.2); eGFR NON BLACK RACES > 60 (>60)
[2020-12-31 05:24] LABS: PLATELET MORPHOLOGY COMMENT NORMAL (NORMAL)
--- NOTE | 2020-12-31 06:05 | RAD ---
HISTORYPNEUMONIA F/USTUDYCHEST, 1 [id number]/06/2021TECHNIQUEAP view of the chestFINDINGSCardiac silhouette is stably enlarged. Mediastinal contours are stable. Stable bilateral airspace opacities worst in the right upper and left lower lungs. No discernible pneumothorax. Cannot exclude a left pleural effusion.IMPRESSIONNo significant change.Electronically signed by: Bryan Gauthier (December 31, 2020 06:03:16)
[2020-12-31] MEDS: ZOSYN VIAL 4.5 GRAMS 4.5 G in NS 100 ML IV + SPIKE MINIBAG* 100 ML IV SCH ×3 (06:11→22:00)
[2020-12-31] MEDS ORDERED: PHARMACY CONSULT - VANCOMYCIN XX SCH (08:00)
[2020-12-31] MEDS ORDERED: DIFLUCAN 100 MG IV (MIX by PHARMACY)* 100 MG/50 ML BAG IV SCH (09:00)
[2020-12-31] MEDS: PULMICORT NEB TX 0.5 MG NEB SCH ×2 (09:01→21:15)
--- NOTE | 2020-12-31 09:14 | PCM.PROG ---
Progress Note Progress Note for Day of Date of Exam: 12/31/20 Subjective Subjective: Pt is a 50 year old female with past medical history of Hypertension, SUKUMAR, admitted for multifocal bilateral pneumonia. This morning she reports not sleeping well at night and having some more difficulty with breathing. She is currently requiring 4L nasal cannula. Labs/imaging: Wbc 24, Hgb 12.2, Plt 401, Na 143, K 3.5, Creatinine 0.60, Glucose 117, Sputum culture gram positive cocci and pure yeast. Treatment course includes: antibiotics Levaquin and Zosyn, scheduled Bronchodilators, supplemental O2, PT/OT, IS, Norvasc. CXR this morning revealed no significant change. Bilateral multifocal pneumonia. Leukocytosis trending upward and with sputum culture results, will add Vancomycin, Diflucan, discontinue Levaquin. Breath sounds diminished, possible mucous plugging. Order smart vest treatments. Plan to wean supplemental O2 as tolerated. Otherwise continue current plan of care. Monitor and follow up labs/imaging in the morning. Past Medical Family Social History Past Med/Fam/Surg Hx: No changes since H&P Allergies: Allergies No Known Drug Allergies Allergy (Verified 03/02/18 11:53) Review of Systems ROS: No change since H&P Vital Signs and I&O's Vital Signs: Temperature 98.5 F Pulse Rate [Apical] 95 Pulse Rate 95 Respiratory Rate 33 Blood Pressure [Left Arm] 184/78 Blood Pressure 101/58 O2 Sat by Pulse Oximetry 90 Intake and Output: Intake & Output 12/28/20 12/29/20 12/30/20 12/31/20 23:59 23:59 23:59 23:59 Intake Total 2866 / 2866 4119 / 4119 2765 / 2765 629 / 629 Balance 2866 / 2866 4119 / 4119 2765 / 2765 629 / 629 Physical Exam Oriented: Normal Eyes: Normal Ear: Normal Nose: Normal Throat: Normal Respiratory: Right, Left, Diminished and Wheezes Cardiovascular: Normal : Normal Auscultation: Bowel Sounds: Normal Tenderness: Normal Skin: Normal Musculoskeletal: Normal Psychiatric: Normal Mood Description: Calm and Appropriate Affect: Normal Speech Pattern: Clear and Appropriate Laboratory and Diagnostics Result Diagrams: 12/31/20 04:25 12/31/20 04:25 Labs: 12/29/20 16:55 Sputum - Expectorated Sputum Sputum Culture - Final 12/29/20 16:55 Sputum - Expectorated Sputum - Final 12/30/20 17:20 Sputum - Expectorated Sputum - Final 12/28/20 07:23 Blood Blood Culture - Preliminary 12/28/20 07:18 Blood Blood Culture - Preliminary Laboratory WBC 24.1 X10^3/uL (3.6-10.0) H 12/31/20 04:25 RBC 4.73 X10^6/uL (3.5-5.4) 12/31/20 04:25 Hgb 12.2 g/dL (12.0-16.0) 12/31/20 04:25 Hct 39.8 % (36.0-47.0) 12/31/20 04:25 MCV 84.0 fL (80.0-100.0) 12/31/20 04:25 MCH 25.8 pg (27.0-34.0) L 12/31/20 04:25 MCHC 30.8 g/dL (33.0-35.0) L 12/31/20 04:25 RDW 16.0 % (11.6-16.5) 12/31/20 04:25 Plt Count 401 X10^3/uL (150.0-450.0) 12/31/20 04:25 Plt Count Comment Adequate (ADEQUATE) 12/31/20 04:25 MPV 8.5 fL (7.4-11.0) 12/31/20 04:25 Neut % (Auto) 93.6 % (42.0-75.0) H 12/31/20 04:25 Lymph % (Auto) 3.7 % (21.0-51.0) L 12/31/20 04:25 [place] % (Auto) 2.5 % (0.0-13.0) 12/31/20 04:25 Eos % (Auto) 0.1 % (0.9-2.9) L 12/31/20 04:25 Baso % (Auto) 0.1 % (0.2-1.0) L 12/31/20 04:25 Neut # (Auto) 22.5 x10^3/uL (2.2-4.8) H 12/31/20 04:25 Lymph # (Auto) 0.9 X10^3/uL (1.3-2.9) L 12/31/20 04:25 [place] # (Auto) 0.6 x10^3/uL (0.3-0.8) 12/31/20 04:25 Eos # (Auto) 0.0 x10^3/uL (0.0-0.2) 12/31/20 04:25 Baso # (Auto) 0.0 X10^3/uL (0.0-0.1) 12/31/20 04:25 Absolute Nucleated RBC 0.1 /100WBC 12/31/20 04:25 Total Counted 100 12/31/20 04:25 Neutrophils % (Manual) 92 % (39-76) H 12/31/20 04:25 Band Neutrophils % 26 % (0-10) H 12/28/20 06:55 Lymphocytes % (Manual) 8 % (13-43) L 12/31/20 04:25 Monocytes % (Manual) 1 % (4-9) L 12/29/20 04:30 Metamyelocytes % 5 12/29/20 04:30 Plt Morphology Comment Normal (NORMAL) 12/31/20 04:25 RBC Morphology Normal (NORMAL) 12/31/20 04:25 Hypochromasia Slight A 12/29/20 04:30 PT 12.8 SECONDS (11.8-14.3) 12/28/20 06:55 INR Target Range - 12/28/20 06:55 INR 1.01 (0.8-1.3) 12/28/20 06:55 APTT 25.0 SECONDS (22.9-36.5) 12/28/20 06:55 PTT Comment - 12/28/20 06:55 D-Dimer 3.33 ug/ml (0.0-0.57) H* 12/28/20 06:55 Sample Site Lr 12/28/20 07:02 ABG pH 7.350 (7.35-7.45) 12/28/20 07:02 ABG pCO2 59.0 mmHg (35.0-45.0) H* 12/28/20 07:02 ABG pO2 48.0 mmHg (80.0-100.0) L* 12/28/20 07:02 ABG HCO3 32.6 mmol/L (22-26) H* 12/28/20 07:02 ABG O2 Saturation 81.0 % (90-100) L* 12/28/20 07:02 ABG Base Excess 5.4 mmol/L (-2.0-2.0) H 12/28/20 07:02 Raman Test Pos 12/28/20 07:02 A-a Gradient 28.0 mmHg 12/28/20 07:02 FiO2 21.0 12/28/20 07:02 Blood Gas Comments Pt iona well cdn 12/28/20 07:02 Sodium 143 mmol/L (136-145) 12/31/20 04:25 Corrected Sodium 143 mmol/L (136-145) 12/31/20 04:25 Potassium 3.5 mmol/L (3.5-5.1) 12/31/20 04:25 Chloride 102 mmol/L (98-107) 12/31/20 04:25 Carbon Dioxide 37.4 mmol/L (21-32) H 12/31/20 04:25 BUN 10 mg/dL (7-18) 12/31/20 04:25 Creatinine 0.60 mg/dL (0.55-1.02) 12/31/20 04:25 Est GFR (MDRD) Af Amer > 60 (>60) 12/31/20 04:25 Est GFR (MDRD) Non-Af > 60 (>60) 12/31/20 04:25 Glucose 117 mg/dL (65-99) H 12/31/20 04:25 POC Glucose (mg/dL) 111 mg/dL (65-99) H 12/28/20 11:53 Lactic Acid 1.1 mmol/L (0.4-2.0) 12/28/20 06:55 Calcium 8.2 mg/dL (8.5-10.1) L 12/31/20 04:25 Corrected Calcium 10.0 mg/dL (8.5-10.1) 12/31/20 04:25 Magnesium 2.2 mg/dL (1.7-2.9) 12/28/20 06:55 Total Bilirubin 0.30 mg/dL (0.2-1.0) 12/31/20 04:25 AST 17 Units/L (15-37) 12/31/20 04:25 ALT 32 Units/L (12-78) 12/31/20 04:25 Alkaline Phosphatase 73 Units/L (46-116) 12/31/20 04:25 Creatine Kinase 119 Units/L (26-192) 12/28/20 06:55 CK-MB (CK-2) < 1.0 ng/mL (0-4.0) 12/28/20 06:55 CK/CKMB % Calc 0.8 % (<4) 12/28/20 06:55 Troponin I < 0.02 ng/mL (0-1.5) 12/28/20 06:55 B-Natriuretic Peptide 97.7 pg/mL (0-79) H 12/28/20 06:55 Total Protein 6.2 g/dL (6.4-8.2) L 12/31/20 04:25 Albumin 1.8 g/dL (3.4-5.0) L 12/31/20 04:25 Globulin 4.4 g/dL (2.5-4.5) 12/31/20 04:25 Albumin/Globulin Ratio 0.4 Ratio (1.1-2.1) L 12/31/20 04:25 Influenza Type A Ag Negative-presumptive (NEGATIVE) 12/28/20 07:38 Influenza Type B Ag Negative-presumptive (NEGATIVE) 12/28/20 07:38 SARS CoV-2 RNA Rapid MINERVA Negative (NEGATIVE) 12/28/20 07:38 Plan (1) Pneumonia: Status: Acute Qualifiers: Laterality: bilateral Lung location: unspecified part of lung Pneumonia type: due to unspecified organism Qualified Code(s): J18.9 - Pneumonia, unspecified organism Plan: Supplemental O2, Bronchodilators Antibiotics: Vancomycin + Zosyn + Diflucan
[2020-12-31] MEDS ORDERED: TORADOL 30 MG VIAL IVP ONE (09:16)
[2020-12-31] MEDS: VANCOMYCIN IV *PREMIX 1 G/200 ML BAG 1 G/200 ML PIGGYBACK IV SCH ×3 (09:24→21:05)
[2020-12-31] MEDS: NICOTINE PATCH TD SCH (10:25)
[2020-12-31] MEDS: DIFLUCAN 200 MG IV PREMIX* 200 MG/100 ML BAG IV SCH (10:25)
[2020-12-31] MEDS: MILK OF MAGNESIA PO SCH ×2 (10:27→20:29)
[2020-12-31] MEDS: LOVENOX INJ 40 MG SYR SC SCH (10:27)
[2020-12-31] MEDS: NORVASC TAB 10 MG PO SCH (10:28)
[2020-12-31] MEDS: NORCO 10/325 TAB PO PRN ×2 (14:01→20:30)
[2020-12-31] MEDS: NYSTATIN SUSP PO PRN (14:01)
[2020-12-31] MEDS: NS 1000 ML 1,000 ML IV SCH (14:08)
[2020-12-31] MEDS: ZANAFLEX PO PRN (15:26)
[2020-12-31] MEDS: COLACE CAP 100 MG PO SCH (20:29)
[2020-12-31] MEDS: KLONOPIN TAB 0.5 MG PO PRN ×2 (20:29→21:27)
[2020-12-31 20:44] LABS: ABG BASE EXCESS 14.7 mmol/L (-2.0-2.0)
[2020-12-31 20:45] LABS: ABG ALLEN TEST POS; ABG HCO3 40.8 mmol/L (22-26)
[2020-12-31] MEDS: ZOFRAN INJ 4 MG VIAL IVP PRN (21:00)
[2020-12-31] MEDS: RESTORIL CAP 15 MG PO PRN (22:09)
[2021-01-01] MEDS: DUONEB 0.5 MG/3 MG (3 mL) NEB SCH ×7 (00:10→20:40)
[2021-01-01] MEDS: NORCO 10/325 TAB PO PRN ×4 (01:21→21:02)
[2021-01-01 05:25] LABS: BASOPHILS # (AUTO) 0.1 X10^3/uL (0.0-0.1); BASOPHILS % (AUTO) 0.3 % (0.2-1.0); EOSINOPHILS % (AUTO) 0.2 % (0.9-2.9); HEMATOCRIT 38.3 % (36.0-47.0); LYMPHOCYTES # (AUTO) 1.2 X10^3/uL (1.3-2.9); LYMPHOCYTES % (AUTO) 5.7 % (21.0-51.0); MEAN CORPUSCULAR HEMOGLOBIN 26.3 pg (27.0-34.0); MEAN CORPUSCULAR HGB CONC 31.3 g/dL (33.0-35.0); MEAN CORPUSCULAR VOLUME 84.1 fL (80.0-100.0); MEAN PLATELET VOLUME 8.2 fL (7.4-11.0); MONOCYTES # (AUTO) 0.5 x10^3/uL (0.3-0.8); MONOCYTES % (AUTO) 2.4 % (0.0-13.0); NEUTROPHILS # (AUTO) 19.3 x10^3/uL (2.2-4.8); NEUTROPHILS % (AUTO) 91.4 % (42.0-75.0); PLATELET COUNT 492 X10^3/uL (150.0-450.0); RED BLOOD COUNT 4.56 X10^6/uL (3.5-5.4); RED CELL DISTRIBUTION WIDTH 16.2 % (11.6-16.5); WHITE BLOOD COUNT 21.1 X10^3/uL (3.6-10.0)
[2021-01-01] MEDS ORDERED: PHARMACY COMMENT IV NR (05:30)
[2021-01-01] MEDS: ZOSYN VIAL 4.5 GRAMS 4.5 G in NS 100 ML IV + SPIKE MINIBAG* 100 ML IV SCH ×3 (05:33→21:53)
[2021-01-01 05:34] LABS: ALANINE AMINOTRANSFERASE 29 Units/L (12-78); ALBUMIN 1.8 g/dL (3.4-5.0); ALKALINE PHOSPHATASE 80 Units/L (46-116); ASPARTATE AMINO TRANSFERASE 14 Units/L (15-37); BLOOD UREA NITROGEN 10 mg/dL (7-18); CALCIUM 8.4 mg/dL (8.5-10.1); CARBON DIOXIDE 37.1 mmol/L (21-32); CHLORIDE 101 mmol/L (98-107); COR CA(FOR HYPOALB) 10.2 mg/dL (8.5-10.1); CREATININE 0.71 mg/dL (0.55-1.02); SODIUM 142 mmol/L (136-145); TOTAL PROTEIN 6.6 g/dL (6.4-8.2); eGFR NON BLACK RACES > 60 (>60)
[2021-01-01 05:45] LABS: PLATELET MORPHOLOGY COMMENT NORMAL (NORMAL)
[2021-01-01] MEDS ORDERED: VANCOMYCIN HCL 500 MG, VANCOMYCIN HCL 1 G in D5W 250 ML IV 250 ML IV SCH (06:00)
[2021-01-01] MEDS: PULMICORT NEB TX 0.5 MG NEB SCH ×2 (08:20→20:40)
[2021-01-01] MEDS: LOVENOX INJ 40 MG SYR SC SCH (08:50)
[2021-01-01] MEDS: DIFLUCAN 200 MG IV PREMIX* 200 MG/100 ML BAG IV SCH (08:50)
[2021-01-01] MEDS: NICOTINE PATCH TD SCH (08:51)
[2021-01-01] MEDS: NORVASC TAB 10 MG PO SCH (08:51)
[2021-01-01] MEDS: MILK OF MAGNESIA PO SCH ×2 (08:51→21:01)
[2021-01-01] MEDS: ZANAFLEX PO PRN (10:15)
[2021-01-01] MEDS: NS 1000 ML 1,000 ML IV SCH (11:03)
[2021-01-01] MEDS: VANCOMYCIN IV *PREMIX 1.5 G/300 ML BAG 1.5 G/300 ML PIGGYBACK IV SCH ×2 (13:51→21:01)
[2021-01-01] MEDS: KLONOPIN TAB 0.5 MG PO PRN ×2 (14:47→22:49)
[2021-01-01] MEDS: COLACE CAP 100 MG PO SCH (21:01)
[2021-01-01] MEDS: TYLENOL 325 MG TAB PO PRN (23:50)
[2021-01-01] MEDS: RESTORIL CAP 15 MG PO PRN (23:51)
[2021-01-02] MEDS: DUONEB 0.5 MG/3 MG (3 mL) NEB SCH ×7 (00:12→20:55)
[2021-01-02 04:51] LABS: BASOPHILS % (AUTO) 0.1 % (0.2-1.0); EOSINOPHILS # (AUTO) 0.1 x10^3/uL (0.0-0.2); EOSINOPHILS % (AUTO) 0.5 % (0.9-2.9); HEMATOCRIT 34.8 % (36.0-47.0); HEMOGLOBIN 10.8 g/dL (12.0-16.0); LYMPHOCYTES # (AUTO) 1.1 X10^3/uL (1.3-2.9); LYMPHOCYTES % (AUTO) 6.8 % (21.0-51.0); MEAN CORPUSCULAR HEMOGLOBIN 26.2 pg (27.0-34.0); MEAN CORPUSCULAR VOLUME 84.6 fL (80.0-100.0); MEAN PLATELET VOLUME 8.2 fL (7.4-11.0); MONOCYTES # (AUTO) 0.6 x10^3/uL (0.3-0.8); MONOCYTES % (AUTO) 3.7 % (0.0-13.0); NEUTROPHILS # (AUTO) 14.4 x10^3/uL (2.2-4.8); NEUTROPHILS % (AUTO) 88.9 % (42.0-75.0); PLATELET COUNT 509 X10^3/uL (150.0-450.0); RED BLOOD COUNT 4.12 X10^6/uL (3.5-5.4); RED CELL DISTRIBUTION WIDTH 16.1 % (11.6-16.5); WHITE BLOOD COUNT 16.2 X10^3/uL (3.6-10.0)
[2021-01-02 05:02] LABS: VANCOMYCIN,TROUGH 9.2 ug/mL (15-20)
[2021-01-02 05:08] LABS: ALANINE AMINOTRANSFERASE 26 Units/L (12-78); ALBUMIN 1.6 g/dL (3.4-5.0); ALKALINE PHOSPHATASE 89 Units/L (46-116); ASPARTATE AMINO TRANSFERASE 13 Units/L (15-37); BLOOD UREA NITROGEN 7 mg/dL (7-18); CALCIUM 8.1 mg/dL (8.5-10.1); CARBON DIOXIDE 37.6 mmol/L (21-32); CHLORIDE 104 mmol/L (98-107); COR NA(FOR HYPERGLY) 144 mmol/L (136-145); SODIUM 143 mmol/L (136-145); TOTAL PROTEIN 6.1 g/dL (6.4-8.2); eGFR NON BLACK RACES > 60 (>60)
[2021-01-02] MEDS: ZOSYN VIAL 4.5 GRAMS 4.5 G in NS 100 ML IV + SPIKE MINIBAG* 100 ML IV SCH ×3 (05:16→21:02)
[2021-01-02] MEDS ORDERED: PHARMACY COMMENT IV NR (05:30)
[2021-01-02] MEDS ORDERED: POTASSIUM CHL 40 MEQ/NS 0.45% 500 ML IV PRN (05:44)
[2021-01-02] MEDS ORDERED: MICRO K EXTEN CAP 10 MEQ PO PRN (05:44)
[2021-01-02] MEDS ORDERED: K-RIDER 10 MEQ/NS 100 ML 10 MEQ/100 ML BAG IV PRN (05:44)
[2021-01-02] MEDS ORDERED: POTASSIUM CHL 60 MEQ/NS 0.45% 500 ML IV PRN (05:44)
[2021-01-02] MEDS ORDERED: KLOR-CON PO PRN (05:44)
[2021-01-02] MEDS ORDERED: POTASSIUM CHLORIDE LIQ 20 MEQ UDC PO PRN (05:44)
[2021-01-02] MEDS: PHARMACY CONSULT - VANCOMYCIN XX SCH (05:55)
--- NOTE | 2021-01-02 06:07 | RAD ---
HISTORYPneumoniaSTUDYCHEST, 1 [id number]/07/2021FINDINGSCardiac silhouette and pulmonary vasculature are unchanged. Bilateral pulmonary airspace consolidations are unchanged. Small left pleural effusion is likely not significantly changed. No pneumothorax.IMPRESSIONStable chest.Electronically signed by: Jarad Viveros (January 02, 2021 06:03:24)
[2021-01-02] MEDS: PULMICORT NEB TX 0.5 MG NEB SCH ×2 (08:15→20:55)
[2021-01-02] MEDS: MILK OF MAGNESIA PO SCH ×2 (08:44→20:06)
[2021-01-02] MEDS: LOVENOX INJ 40 MG SYR SC SCH (08:44)
[2021-01-02] MEDS: DIFLUCAN 200 MG IV PREMIX* 200 MG/100 ML BAG IV SCH (08:44)
[2021-01-02] MEDS: NORVASC TAB 10 MG PO SCH (08:44)
[2021-01-02] MEDS: K-DUR TAB 20 MEQ PO PRN (08:45)
[2021-01-02] MEDS: NICOTINE PATCH TD SCH (08:45)
[2021-01-02] MEDS: NORCO 10/325 TAB PO PRN ×2 (08:45→18:14)
[2021-01-02] MEDS: VANCOMYCIN IV *PREMIX 2 G/400 ML BAG 2 G/400 ML PIGGYBACK IV SCH ×2 (09:45→18:14)
[2021-01-02] MEDS: ZANAFLEX PO PRN (12:00)
[2021-01-02] MEDS: NS 1000 ML 1,000 ML IV SCH (16:13)
[2021-01-02] MEDS: COLACE CAP 100 MG PO SCH (20:06)
[2021-01-02] MEDS: KLONOPIN TAB 0.5 MG PO PRN (20:48)
[2021-01-03] MEDS ORDERED: NS 250 ML IV 250 ML IV PRN (00:07)
[2021-01-03] MEDS ORDERED: NS 250 ML IV 250 ML IV ONE (00:09)
[2021-01-03] MEDS: NORCO 10/325 TAB PO PRN ×2 (00:11→19:10)
[2021-01-03] MEDS: RESTORIL CAP 15 MG PO PRN ×2 (00:11→20:56)
[2021-01-03] MEDS: VANCOMYCIN IV *PREMIX 2 G/400 ML BAG 2 G/400 ML PIGGYBACK IV SCH ×3 (00:12→17:18)
[2021-01-03] MEDS: DUONEB 0.5 MG/3 MG (3 mL) NEB SCH ×6 (00:15→20:52)
[2021-01-03] MEDS: MAGNESIUM SULFATE 1 GRAM/100 mL PREMIX 1 GM/100 ML BAG IV PRN ×2 (00:27→01:15)
[2021-01-03] MEDS: ZOSYN VIAL 4.5 GRAMS 4.5 G in NS 100 ML IV + SPIKE MINIBAG* 100 ML IV SCH ×3 (05:03→21:00)
[2021-01-03] MEDS: PHARMACY CONSULT - VANCOMYCIN XX SCH (05:03)
[2021-01-03] MEDS: NS 1000 ML 1,000 ML IV SCH ×2 (05:04→18:50)
[2021-01-03 05:54] LABS: ABG BASE EXCESS 11.8 mmol/L (-2.0-2.0)
[2021-01-03 05:55] LABS: ABG ALLEN TEST POS; ABG HCO3 39.3 mmol/L (22-26)
[2021-01-03 07:07] LABS: BASOPHILS # (AUTO) 0.1 X10^3/uL (0.0-0.1); BASOPHILS % (AUTO) 0.4 % (0.2-1.0); EOSINOPHILS # (AUTO) 0.1 x10^3/uL (0.0-0.2); EOSINOPHILS % (AUTO) 0.6 % (0.9-2.9); HEMATOCRIT 34.4 % (36.0-47.0); HEMOGLOBIN 10.8 g/dL (12.0-16.0); LYMPHOCYTES # (AUTO) 0.7 X10^3/uL (1.3-2.9); LYMPHOCYTES % (AUTO) 5.2 % (21.0-51.0); MEAN CORPUSCULAR HEMOGLOBIN 26.4 pg (27.0-34.0); MEAN CORPUSCULAR HGB CONC 31.5 g/dL (33.0-35.0); MEAN PLATELET VOLUME 7.5 fL (7.4-11.0); MONOCYTES # (AUTO) 0.6 x10^3/uL (0.3-0.8); MONOCYTES % (AUTO) 4.5 % (0.0-13.0); NEUTROPHILS # (AUTO) 12.5 x10^3/uL (2.2-4.8); NEUTROPHILS % (AUTO) 89.3 % (42.0-75.0); PLATELET COUNT 512 X10^3/uL (150.0-450.0)
--- NOTE | 2021-01-03 07:26 | RAD ---
HISTORYPNEUMONIASTUDYCHEST, 1 [id number]/09/2021.TECHNIQUEAP view of the chestFINDINGSCardiac silhouette is obscured at the left heart border but is likely enlarged. No significant change in multifocal bilateral airspace opacities. Suspect moderate left pleural effusion. No discernible pneumothorax.IMPRESSIONNo significant change.Electronically signed by: Bryan Gauthier (January 03, 2021 07:24:42)
[2021-01-03 07:29] LABS: ALANINE AMINOTRANSFERASE 24 Units/L (12-78); ALBUMIN 1.6 g/dL (3.4-5.0); ALKALINE PHOSPHATASE 87 Units/L (46-116); ASPARTATE AMINO TRANSFERASE 14 Units/L (15-37); BLOOD UREA NITROGEN 6 mg/dL (7-18); CALCIUM 8.1 mg/dL (8.5-10.1); CHLORIDE 102 mmol/L (98-107); CREATININE 0.64 mg/dL (0.55-1.02); MAGNESIUM 2.2 mg/dL (1.7-2.9); SODIUM 141 mmol/L (136-145); TOTAL PROTEIN 6.5 g/dL (6.4-8.2); eGFR NON BLACK RACES > 60 (>60)
[2021-01-03 07:32] LABS: CREATININE 0.64 mg/dL (0.55-1.02); VANCOMYCIN,TROUGH 18.3 ug/mL (15-20)
[2021-01-03] MEDS: PULMICORT NEB TX 0.5 MG NEB SCH ×2 (08:33→20:53)
[2021-01-03] MEDS: DIFLUCAN 200 MG IV PREMIX* 200 MG/100 ML BAG IV SCH (08:45)
[2021-01-03] MEDS: NORVASC TAB 10 MG PO SCH (08:51)
[2021-01-03] MEDS: NICOTINE PATCH TD SCH (08:51)
[2021-01-03] MEDS: MILK OF MAGNESIA PO SCH ×3 (08:51→21:05)
[2021-01-03] MEDS: LOVENOX INJ 40 MG SYR SC SCH (08:52)
[2021-01-03] MEDS: LASIX IVP SCH ×2 (11:10→17:18)
[2021-01-03] MEDS: ZANAFLEX PO PRN ×2 (14:30→20:56)
[2021-01-03] MEDS: COLACE CAP 100 MG PO SCH (20:56)
[2021-01-03] MEDS: KLONOPIN TAB 0.5 MG PO PRN (20:56)
[2021-01-04] MEDS: DUONEB 0.5 MG/3 MG (3 mL) NEB SCH ×6 (00:20→21:10)
[2021-01-04] MEDS: VANCOMYCIN IV *PREMIX 2 G/400 ML BAG 2 G/400 ML PIGGYBACK IV SCH ×3 (00:48→16:51)
[2021-01-04] MEDS: NORCO 10/325 TAB PO PRN ×3 (02:58→21:18)
[2021-01-04] MEDS: ZOFRAN INJ 4 MG VIAL IVP PRN (02:59)
[2021-01-04 05:25] LABS: BASOPHILS % (AUTO) 0.3 % (0.2-1.0); EOSINOPHILS # (AUTO) 0.1 x10^3/uL (0.0-0.2); EOSINOPHILS % (AUTO) 0.6 % (0.9-2.9); HEMATOCRIT 33.5 % (36.0-47.0); HEMOGLOBIN 10.3 g/dL (12.0-16.0); LYMPHOCYTES # (AUTO) 0.9 X10^3/uL (1.3-2.9); LYMPHOCYTES % (AUTO) 6.4 % (21.0-51.0); MEAN CORPUSCULAR HEMOGLOBIN 25.9 pg (27.0-34.0); MEAN CORPUSCULAR HGB CONC 30.8 g/dL (33.0-35.0); MEAN CORPUSCULAR VOLUME 84.1 fL (80.0-100.0); MEAN PLATELET VOLUME 7.9 fL (7.4-11.0); MONOCYTES # (AUTO) 0.7 x10^3/uL (0.3-0.8); MONOCYTES % (AUTO) 5.4 % (0.0-13.0); NEUTROPHILS % (AUTO) 87.3 % (42.0-75.0); PLATELET COUNT 574 X10^3/uL (150.0-450.0); RED BLOOD COUNT 3.99 X10^6/uL (3.5-5.4); RED CELL DISTRIBUTION WIDTH 16.9 % (11.6-16.5); WHITE BLOOD COUNT 13.7 X10^3/uL (3.6-10.0)
[2021-01-04] MEDS: ZOSYN VIAL 4.5 GRAMS 4.5 G in NS 100 ML IV + SPIKE MINIBAG* 100 ML IV SCH ×3 (05:35→21:18)
[2021-01-04 05:43] LABS: ALANINE AMINOTRANSFERASE 25 Units/L (12-78); ALBUMIN 1.6 g/dL (3.4-5.0); ALKALINE PHOSPHATASE 125 Units/L (46-116); ASPARTATE AMINO TRANSFERASE 16 Units/L (15-37); BLOOD UREA NITROGEN 9 mg/dL (7-18); CALCIUM 8.1 mg/dL (8.5-10.1); CARBON DIOXIDE 34.3 mmol/L (21-32); CHLORIDE 102 mmol/L (98-107); COR NA(FOR HYPERGLY) 142 mmol/L (136-145); CREATININE 0.68 mg/dL (0.55-1.02); SODIUM 141 mmol/L (136-145); TOTAL PROTEIN 6.6 g/dL (6.4-8.2); eGFR NON BLACK RACES > 60 (>60)
--- NOTE | 2021-01-04 06:38 | RAD ---
HISTORYSOBSTUDYCHEST, 1 [id number]/10/2021.TECHNIQUEAP view of the chestFINDINGSCardiac silhouette is obscured at the left heart border and appears similar to prior. No significant change in bilateral airspace opacities worst at the left base and right upper lung. No discernible pneumothorax. Cannot exclude left pleural effusion. Soft tissue attenuation limits evaluation.IMPRESSIONNo significant change.Electronically signed by: Bryan Gauthier (January 04, 2021 06:36:23)
[2021-01-04] MEDS: DIFLUCAN 200 MG IV PREMIX* 200 MG/100 ML BAG IV SCH (08:31)
[2021-01-04] MEDS: NICOTINE PATCH TD SCH (08:31)
[2021-01-04] MEDS: NORVASC TAB 10 MG PO SCH (08:31)
[2021-01-04] MEDS: MILK OF MAGNESIA PO SCH ×2 (08:32→21:15)
[2021-01-04] MEDS: LOVENOX INJ 40 MG SYR SC SCH (08:32)
[2021-01-04] MEDS: K-DUR TAB 20 MEQ PO PRN (08:42)
[2021-01-04] MEDS: NYSTATIN SUSP PO PRN (09:43)
[2021-01-04] MEDS: PULMICORT NEB TX 0.5 MG NEB SCH ×2 (09:57→21:10)
--- NOTE | 2021-01-04 11:44 | PCM.PROG ---
Progress Note - Progress Note for Day of Date of Exam: 01/03/21 - Subjective Subjective: IS A PATIENT OF . SHE WAS ADMITTED ON 12/28/20 FOR TREATMENT OF PNEUMONIA WITH HYPOXIA. TODAY, SHE IS ALERT AND ORIENTED, SITTING UP IN BED ON MORNING ROUNDS. SHE CONTINUES WITH COMPLAINTS OF COUGH AND SHORTNESS OF BREATH, BUT DOES ADMIT TO SLIGHT IMPROVEMENT SINCE ADMISSION. SHE IS CURRENTLY UTILIZING OXYGEN VIA NASAL CANNULA AT 3 LITERS/MINUTE. HER SATURATIONS HAVE BEEN 93-96% THROUGHOUT THE NIGHT. ON EXAMINATION, HEART IS REGULAR IN RATE AND RHYTHM. BILATERAL LUNGS ARE NOTED WITH SCATTERED WHEEZING THROUGHOUT. ABDOMEN IS ROUND, SOFT, AND NON-TENDER WITH NORMAL BOWEL SOUNDS NOTED IN ALL QUADRANTS. TRACE EDEMA NOTED TO BILATERAL LOWER EXTREMITIES. HER VITALS THIS MORNING ARE: 98.7-97-29-94%NC-144/79. LABS WERE OBTAINED. ABNORMAL LAB VALUES INCLUDE THE FOLLOWING: WBC 14.0, HGB 10.8, HCT 34.4, PLT COUNT 512, CARBON DIOXIDE 36.0, BUN 6, GLUCOSE 103, CALCIUM 8.1, ALK PHOS 125, ALBUMIN 1.6, GLOBULIN 5.0. SPUTUM CULTURE WAS POSITIVE FOR GROWTH OF YEAST. CHEST XRAY WAS REPEATED TODAY AND REVEALED: Cardiac silhouette is obscured at the left heart border but is likely enlarged. No significant change in multifocal bilateral airspace opacities. Suspect moderate left pleural effusion. No discernible pneumothorax. SHE IS CURRENTLY RECEIVING NORMAL SALINE AT 75 ML/HR, VANCOMYCIN 2G IV Q8H, ZOSYN 4.5G IV TID, DIFLUCAN 200MG IV DAILY, DUONEBS Q4H, PULMICORT BID, LOVENOX 40MG SC DAILY, MAGIC MOUTHWASH 5ML QID PRN, ZOFRAN 4MG IV Q6H PRN, NORVASC 10MG PO DAILY, KLONOPIN 0.5MG PO BID PRN, MILK OF MAGNESIA 30ML PO BID, NYSTATIN 5ML PO QID PRN, AND THE POTASSIUM AND MAGNESIUM PROTOCOLS. WE WILL CONTINUE WITH CURRENT PLAN OF CARE TODAY. OTHERWISE, WE WILL FOLLOW UP WITH AM LABS AND CONTINUE TO MONITOR. TIME SPENT ON CLINICAL ASSESSMENT, REVIEWING LABS AND IMAGING, DECISION MAKING, AND DOCUMENTATION GREATER THAN 45 MINUTES. - Past Medical Family Social History Past Med/Fam/Surg Hx: No changes since H&P Allergies: Allergies No Known Drug Allergies Allergy (Verified 03/02/18 11:53) - Review of Systems ROS: No change since H&P - Vital Signs and I&O's Vital Signs: Temperature 98.9 F Pulse Rate [Apical] 97 Pulse Rate 100 Respiratory Rate 28 Blood Pressure [Left Arm] 134/66 Blood Pressure 101/58 O2 Sat by Pulse Oximetry 93 Intake and Output: Intake & Output 01/01/21 01/02/21 01/03/21 01/04/21 11:59 11:59 11:59 11:59 Intake Total 3728 / 3728 3620 / 3620 4680 / 4680 5459 / 5459 Balance 3728 / 3728 3620 / 3620 4680 / 4680 5459 / 5459 - Physical Exam Oriented: Normal Eyes: Normal Ear: Normal Nose: Normal Throat: Normal Respiratory: Right, Left, Diminished, Wheezes Cardiovascular: Edema (TRACE EDEMA BLE ) : Normal Auscultation: Bowel Sounds: Normal Palpation: Normal Tenderness: Normal Skin: Normal Musculoskeletal: Normal Psychiatric: Normal Mood Description: Calm, Appropriate Affect: Normal Speech Pattern: Clear, Appropriate - Laboratory and Diagnostics Result Diagrams: 01/04/21 04:52 01/04/21 04:52 Labs: 12/28/20 07:23 Blood Blood Culture - Final 12/28/20 07:18 Blood Blood Culture - Final 12/30/20 17:20 Sputum - Expectorated Sputum Sputum Culture - Final 12/30/20 17:20 Sputum - Expectorated Sputum - Final 12/29/20 16:55 Sputum - Expectorated Sputum Sputum Culture - Final 12/29/20 16:55 Sputum - Expectorated Sputum - Final Laboratory WBC 13.7 X10^3/uL (3.6-10.0) H 01/04/21 04:52 RBC 3.99 X10^6/uL (3.5-5.4) 01/04/21 04:52 Hgb 10.3 g/dL (12.0-16.0) L 01/04/21 04:52 Hct 33.5 % (36.0-47.0) L 01/04/21 04:52 MCV 84.1 fL (80.0-100.0) 01/04/21 04:52 MCH 25.9 pg (27.0-34.0) L 01/04/21 04:52 MCHC 30.8 g/dL (33.0-35.0) L 01/04/21 04:52 RDW 16.9 % (11.6-16.5) H 01/04/21 04:52 Plt Count 574 X10^3/uL (150.0-450.0) H 01/04/21 04:52 Plt Count Comment Increased (ADEQUATE) A 01/01/21 04:55 MPV 7.9 fL (7.4-11.0) 01/04/21 04:52 Neut % (Auto) 87.3 % (42.0-75.0) H 01/04/21 04:52 Lymph % (Auto) 6.4 % (21.0-51.0) L 01/04/21 04:52 [place] % (Auto) 5.4 % (0.0-13.0) 01/04/21 04:52 Eos % (Auto) 0.6 % (0.9-2.9) L 01/04/21 04:52 Baso % (Auto) 0.3 % (0.2-1.0) 01/04/21 04:52 Neut # (Auto) 12.0 x10^3/uL (2.2-4.8) H 01/04/21 04:52 Lymph # (Auto) 0.9 X10^3/uL (1.3-2.9) L 01/04/21 04:52 [place] # (Auto) 0.7 x10^3/uL (0.3-0.8) 01/04/21 04:52 Eos # (Auto) 0.1 x10^3/uL (0.0-0.2) 01/04/21 04:52 Baso # (Auto) 0.0 X10^3/uL (0.0-0.1) 01/04/21 04:52 Absolute Nucleated RBC 0.0 /100WBC 01/04/21 04:52 Total Counted 100 01/01/21 04:55 Neutrophils % (Manual) 90 % (39-76) H 01/01/21 04:55 Band Neutrophils % 26 % (0-10) H 12/28/20 06:55 Lymphocytes % (Manual) 8 % (13-43) L 01/01/21 04:55 Monocytes % (Manual) 1 % (4-9) L 01/01/21 04:55 Eosinophils % (Manual) 1 % (0-6) 01/01/21 04:55 Metamyelocytes % 5 12/29/20 04:30 Plt Morphology Comment Normal (NORMAL) 01/01/21 04:55 RBC Morphology Normal (NORMAL) 01/01/21 04:55 Hypochromasia Slight A 12/29/20 04:30 PT 12.8 SECONDS (11.8-14.3) 12/28/20 06:55 INR Target Range - 12/28/20 06:55 INR 1.01 (0.8-1.3) 12/28/20 06:55 APTT 25.0 SECONDS (22.9-36.5) 12/28/20 06:55 PTT Comment - 12/28/20 06:55 D-Dimer 3.33 ug/ml (0.0-0.57) H* 12/28/20 06:55 Sample Site Rr 01/03/21 05:00 ABG pH 7.390 (7.35-7.45) 01/03/21 05:00 ABG pCO2 65.0 mmHg (35.0-45.0) H* 01/03/21 05:00 ABG pO2 60.0 mmHg (80.0-100.0) L 01/03/21 05:00 ABG HCO3 39.3 mmol/L (22-26) H* 01/03/21 05:00 ABG O2 Saturation 90.0 % (90-100) 01/03/21 05:00 ABG Base Excess 11.8 mmol/L (-2.0-2.0) H 01/03/21 05:00 Raman Test Pos 01/03/21 05:00 A-a Gradient 87.0 mmHg 01/03/21 05:00 FiO2 32.0 01/03/21 05:00 Blood Gas Comments [place] well sw 01/03/21 05:00 Sodium 141 mmol/L (136-145) 01/04/21 04:52 Corrected Sodium 142 mmol/L (136-145) 01/04/21 04:52 Potassium 3.4 mmol/L (3.5-5.1) L 01/04/21 04:52 Chloride 102 mmol/L (98-107) 01/04/21 04:52 Carbon Dioxide 34.3 mmol/L (21-32) H 01/04/21 04:52 BUN 9 mg/dL (7-18) 01/04/21 04:52 Creatinine 0.68 mg/dL (0.55-1.02) 01/04/21 04:52 Est GFR (MDRD) Af Amer > 60 (>60) 01/04/21 04:52 Est GFR (MDRD) Non-Af > 60 (>60) 01/04/21 04:52 Glucose 126 mg/dL (65-99) H 01/04/21 04:52 POC Glucose (mg/dL) 111 mg/dL (65-99) H 12/28/20 11:53 Lactic Acid 1.1 mmol/L (0.4-2.0) 12/28/20 06:55 Calcium 8.1 mg/dL (8.5-10.1) L 01/04/21 04:52 Corrected Calcium 10.0 mg/dL (8.5-10.1) 01/04/21 04:52 Magnesium 2.2 mg/dL (1.7-2.9) 01/03/21 06:55 Total Bilirubin 0.30 mg/dL (0.2-1.0) 01/04/21 04:52 AST 16 Units/L (15-37) 01/04/21 04:52 ALT 25 Units/L (12-78) 01/04/21 04:52 Alkaline Phosphatase 125 Units/L (46-116) H 01/04/21 04:52 Creatine Kinase 119 Units/L (26-192) 12/28/20 06:55 CK-MB (CK-2) < 1.0 ng/mL (0-4.0) 12/28/20 06:55 CK/CKMB % Calc 0.8 % (<4) 12/28/20 06:55 Troponin I < 0.02 ng/mL (0-1.5) 12/28/20 06:55 B-Natriuretic Peptide 97.7 pg/mL (0-79) H 12/28/20 06:55 Total Protein 6.6 g/dL (6.4-8.2) 01/04/21 04:52 Albumin 1.6 g/dL (3.4-5.0) L 01/04/21 04:52 Globulin 5.0 g/dL (2.5-4.5) H 01/04/21 04:52 Albumin/Globulin Ratio 0.3 Ratio (1.1-2.1) L 01/04/21 04:52 Vancomycin Trough 18.3 ug/mL (15-20) 01/03/21 06:55 Influenza Type A Ag Negative-presumptive (NEGATIVE) 12/28/20 07:38 Influenza Type B Ag Negative-presumptive (NEGATIVE) 12/28/20 07:38 SARS CoV-2 RNA Rapid MINERVA Negative (NEGATIVE) 12/28/20 07:38 - Plan (1) Pneumonia Status: Acute Qualifiers: Pneumonia type: due to unspecified organism Laterality: bilateral Lung location: unspecified part of lung Qualified Code(s): J18.9 - Pneumonia, unspecified organism Plan: Supplemental O2, Bronchodilators. Antibiotics: Vancomycin + Zosyn + Diflucan (2) Dyspnea Status: Acute Qualifiers: Dyspnea type: shortness of breath Qualified Code(s): R06.02 - Shortness of breath
--- NOTE | 2021-01-04 11:56 | PCM.PROG ---
Progress Note - Progress Note for Day of Date of Exam: 01/04/21 - Subjective Subjective: IS A PATIENT OF . SHE WAS ADMITTED ON 12/28/20 FOR TREATMENT OF PNEUMONIA WITH HYPOXIA. TODAY, SHE IS ALERT AND ORIENTED, SITTING UP IN BED ON MORNING ROUNDS. SHE CONTINUES WITH COMPLAINTS OF COUGH AND SHORTNESS OF BREATH. SHE ALSO REPORTS SEVERE PAIN TO THE RIGHT RIB AREA WHEN COUGHING. THIS IS LIKELY PLEURISY. SHE IS CURRENTLY UTILIZING OXYGEN VIA NASAL CANNULA AT 3 LITERS/MINUTE. HER SATURATIONS HAVE BEEN 90-94% THROUGHOUT THE NIGHT. ON EXAMINATION, HEART IS REGULAR IN RATE AND RHYTHM. BILATERAL LUNGS ARE NOTED WITH SCATTERED WHEEZING THROUGHOUT. ABDOMEN IS ROUND, SOFT, AND NON-TENDER WITH NORMAL BOWEL SOUNDS NOTED IN ALL QUADRANTS. TRACE EDEMA NOTED TO BILATERAL LOWER EXTREMITIES. HER VITALS THIS MORNING ARE: 98.9-100-26-92%-135/63. LABS WERE OBTAINED. ABNORMAL LAB VALUES INCLUDE THE FOLLOWING: WBC 13.7, HGB 10.3, HCT 33.5, PLT COUNT 574, POTASSIUM 3.4, CARBON DIOXIDE 34.3, GLUCOSE 126, CALCIUM 8.1, ALK PHOS 125, ALBUMIN 1.6, GLOBULIN 5.0. SPUTUM CULTURE WAS POSITIVE FOR GROWTH OF YEAST. CHEST XRAY WAS REPEATED TODAY AND REVEALED: Cardiac silhouette is obscured at the left heart border and appears similar to prior. No significant change in bilateral airspace opacities worst at the left base and right upper lung. No discernible pneumothorax. Cannot exclude left pleural effusion. Soft tissue attenuation limits evaluation. SHE IS CURRENTLY RECEIVING NORMAL SALINE AT 75 ML/HR, VANCOMYCIN 2G IV Q8H, ZOSYN 4.5G IV TID, DIFLUCAN 200MG IV DAILY, DUONEBS Q4H, PULMICORT BID, LOVENOX 40MG SC DAILY, MAGIC MOUTHWASH 5ML QID PRN, ZOFRAN 4MG IV Q6H PRN, NORVASC 10MG PO DAILY, KLONOPIN 0.5MG PO BID PRN, MILK OF MAGNESIA 30ML PO BID, NYSTATIN 5ML PO QID PRN, AND THE POTASSIUM AND MAGNESIUM PROTOCOLS. TODAY, WE WILL ADD TORADOL 30MG IV Q6H FOR PAIN. OTHERWISE, WE WILL CONTINUE WITH CURRENT PLAN OF CARE TODAY. WE WILL FOLLOW UP WITH AM LABS AND CHEST XRAY AND CONTINUE TO MONITOR. TIME SPENT ON CLINICAL ASSESSMENT, REVIEWING LABS AND IMAGING, DECISION MAKING, AND DOCUMENTATION GREATER THAN 45 MINUTES. - Past Medical Family Social History Past Med/Fam/Surg Hx: No changes since H&P Allergies: Allergies No Known Drug Allergies Allergy (Verified 03/02/18 11:53) - Review of Systems ROS: No change since H&P - Vital Signs and I&O's Vital Signs: Temperature 98.9 F Pulse Rate [Apical] 97 Pulse Rate 100 Respiratory Rate 28 Blood Pressure [Left Arm] 134/66 Blood Pressure 101/58 O2 Sat by Pulse Oximetry 93 Intake and Output: Intake & Output 01/01/21 01/02/21 01/03/21 01/04/21 11:59 11:59 11:59 11:59 Intake Total 3728 / 3728 3620 / 3620 4680 / 4680 5459 / 5459 Balance 3728 / 3728 3620 / 3620 4680 / 4680 5459 / 5459 - Physical Exam Oriented: Normal Eyes: Normal Ear: Normal Nose: Normal Throat: Normal Respiratory: Right, Left, Diminished, Wheezes Cardiovascular: Edema (TRACE EDEMA BLE ) : Normal Auscultation: Bowel Sounds: Normal Tenderness: Normal Skin: Normal Musculoskeletal: Normal Psychiatric: Normal Mood Description: Calm, Appropriate Affect: Normal Speech Pattern: Clear, Appropriate - Laboratory and Diagnostics Result Diagrams: 01/04/21 04:52 01/04/21 04:52 Labs: 12/28/20 07:23 Blood Blood Culture - Final 12/28/20 07:18 Blood Blood Culture - Final 12/30/20 17:20 Sputum - Expectorated Sputum Sputum Culture - Final 12/30/20 17:20 Sputum - Expectorated Sputum - Final 12/29/20 16:55 Sputum - Expectorated Sputum Sputum Culture - Final 12/29/20 16:55 Sputum - Expectorated Sputum - Final Laboratory WBC 13.7 X10^3/uL (3.6-10.0) H 01/04/21 04:52 RBC 3.99 X10^6/uL (3.5-5.4) 01/04/21 04:52 Hgb 10.3 g/dL (12.0-16.0) L 01/04/21 04:52 Hct 33.5 % (36.0-47.0) L 01/04/21 04:52 MCV 84.1 fL (80.0-100.0) 01/04/21 04:52 MCH 25.9 pg (27.0-34.0) L 01/04/21 04:52 MCHC 30.8 g/dL (33.0-35.0) L 01/04/21 04:52 RDW 16.9 % (11.6-16.5) H 01/04/21 04:52 Plt Count 574 X10^3/uL (150.0-450.0) H 01/04/21 04:52 Plt Count Comment Increased (ADEQUATE) A 01/01/21 04:55 MPV 7.9 fL (7.4-11.0) 01/04/21 04:52 Neut % (Auto) 87.3 % (42.0-75.0) H 01/04/21 04:52 Lymph % (Auto) 6.4 % (21.0-51.0) L 01/04/21 04:52 [place] % (Auto) 5.4 % (0.0-13.0) 01/04/21 04:52 Eos % (Auto) 0.6 % (0.9-2.9) L 01/04/21 04:52 Baso % (Auto) 0.3 % (0.2-1.0) 01/04/21 04:52 Neut # (Auto) 12.0 x10^3/uL (2.2-4.8) H 01/04/21 04:52 Lymph # (Auto) 0.9 X10^3/uL (1.3-2.9) L 01/04/21 04:52 [place] # (Auto) 0.7 x10^3/uL (0.3-0.8) 01/04/21 04:52 Eos # (Auto) 0.1 x10^3/uL (0.0-0.2) 01/04/21 04:52 Baso # (Auto) 0.0 X10^3/uL (0.0-0.1) 01/04/21 04:52 Absolute Nucleated RBC 0.0 /100WBC 01/04/21 04:52 Total Counted 100 01/01/21 04:55 Neutrophils % (Manual) 90 % (39-76) H 01/01/21 04:55 Band Neutrophils % 26 % (0-10) H 12/28/20 06:55 Lymphocytes % (Manual) 8 % (13-43) L 01/01/21 04:55 Monocytes % (Manual) 1 % (4-9) L 01/01/21 04:55 Eosinophils % (Manual) 1 % (0-6) 01/01/21 04:55 Metamyelocytes % 5 12/29/20 04:30 Plt Morphology Comment Normal (NORMAL) 01/01/21 04:55 RBC Morphology Normal (NORMAL) 01/01/21 04:55 Hypochromasia Slight A 12/29/20 04:30 PT 12.8 SECONDS (11.8-14.3) 12/28/20 06:55 INR Target Range - 12/28/20 06:55 INR 1.01 (0.8-1.3) 12/28/20 06:55 APTT 25.0 SECONDS (22.9-36.5) 12/28/20 06:55 PTT Comment - 12/28/20 06:55 D-Dimer 3.33 ug/ml (0.0-0.57) H* 12/28/20 06:55 Sample Site Rr 01/03/21 05:00 ABG pH 7.390 (7.35-7.45) 01/03/21 05:00 ABG pCO2 65.0 mmHg (35.0-45.0) H* 01/03/21 05:00 ABG pO2 60.0 mmHg (80.0-100.0) L 01/03/21 05:00 ABG HCO3 39.3 mmol/L (22-26) H* 01/03/21 05:00 ABG O2 Saturation 90.0 % (90-100) 01/03/21 05:00 ABG Base Excess 11.8 mmol/L (-2.0-2.0) H 01/03/21 05:00 Raman Test Pos 01/03/21 05:00 A-a Gradient 87.0 mmHg 01/03/21 05:00 FiO2 32.0 01/03/21 05:00 Blood Gas Comments [place] well sw 01/03/21 05:00 Sodium 141 mmol/L (136-145) 01/04/21 04:52 Corrected Sodium 142 mmol/L (136-145) 01/04/21 04:52 Potassium 3.4 mmol/L (3.5-5.1) L 01/04/21 04:52 Chloride 102 mmol/L (98-107) 01/04/21 04:52 Carbon Dioxide 34.3 mmol/L (21-32) H 01/04/21 04:52 BUN 9 mg/dL (7-18) 01/04/21 04:52 Creatinine 0.68 mg/dL (0.55-1.02) 01/04/21 04:52 Est GFR (MDRD) Af Amer > 60 (>60) 01/04/21 04:52 Est GFR (MDRD) Non-Af > 60 (>60) 01/04/21 04:52 Glucose 126 mg/dL (65-99) H 01/04/21 04:52 POC Glucose (mg/dL) 111 mg/dL (65-99) H 12/28/20 11:53 Lactic Acid 1.1 mmol/L (0.4-2.0) 12/28/20 06:55 Calcium 8.1 mg/dL (8.5-10.1) L 01/04/21 04:52 Corrected Calcium 10.0 mg/dL (8.5-10.1) 01/04/21 04:52 Magnesium 2.2 mg/dL (1.7-2.9) 01/03/21 06:55 Total Bilirubin 0.30 mg/dL (0.2-1.0) 01/04/21 04:52 AST 16 Units/L (15-37) 01/04/21 04:52 ALT 25 Units/L (12-78) 01/04/21 04:52 Alkaline Phosphatase 125 Units/L (46-116) H 01/04/21 04:52 Creatine Kinase 119 Units/L (26-192) 12/28/20 06:55 CK-MB (CK-2) < 1.0 ng/mL (0-4.0) 12/28/20 06:55 CK/CKMB % Calc 0.8 % (<4) 12/28/20 06:55 Troponin I < 0.02 ng/mL (0-1.5) 12/28/20 06:55 B-Natriuretic Peptide 97.7 pg/mL (0-79) H 12/28/20 06:55 Total Protein 6.6 g/dL (6.4-8.2) 01/04/21 04:52 Albumin 1.6 g/dL (3.4-5.0) L 01/04/21 04:52 Globulin 5.0 g/dL (2.5-4.5) H 01/04/21 04:52 Albumin/Globulin Ratio 0.3 Ratio (1.1-2.1) L 01/04/21 04:52 Vancomycin Trough 18.3 ug/mL (15-20) 01/03/21 06:55 Influenza Type A Ag Negative-presumptive (NEGATIVE) 12/28/20 07:38 Influenza Type B Ag Negative-presumptive (NEGATIVE) 12/28/20 07:38 SARS CoV-2 RNA Rapid MINERVA Negative (NEGATIVE) 12/28/20 07:38 - Plan (1) Pneumonia Status: Acute Qualifiers: Pneumonia type: due to unspecified organism Laterality: bilateral Lung location: unspecified part of lung Qualified Code(s): J18.9 - Pneumonia, unspecified organism Plan: Supplemental O2, Bronchodilators. Antibiotics: Vancomycin + Zosyn + Diflucan (2) Dyspnea Status: Acute Qualifiers: Dyspnea type: shortness of breath Qualified Code(s): R06.02 - Shortness of breath
[2021-01-04] MEDS: TORADOL 30 MG VIAL IVP SCH ×3 (12:52→23:14)
[2021-01-04 16:37] LABS: CREATININE 0.81 mg/dL (0.55-1.02)
[2021-01-04 16:39] LABS: VANCOMYCIN,TROUGH 23.5 ug/mL (15-20)
[2021-01-04] MEDS: NS 1000 ML 1,000 ML IV SCH (18:48)
[2021-01-04] MEDS: RESTORIL CAP 15 MG PO PRN (21:18)
[2021-01-04] MEDS: KLONOPIN TAB 0.5 MG PO PRN (21:19)
[2021-01-04] MEDS: COLACE CAP 100 MG PO SCH (21:19)
[2021-01-04] MEDS: ZANAFLEX PO PRN (22:48)
[2021-01-05] MEDS: DUONEB 0.5 MG/3 MG (3 mL) NEB SCH ×7 (00:46→20:24)
[2021-01-05] MEDS: TORADOL 30 MG VIAL IVP SCH ×4 (04:11→23:49)
[2021-01-05] MEDS: ZOSYN VIAL 4.5 GRAMS 4.5 G in NS 100 ML IV + SPIKE MINIBAG* 100 ML IV SCH ×3 (05:11→22:06)
[2021-01-05] MEDS: NORCO 10/325 TAB PO PRN ×3 (05:18→22:07)
[2021-01-05 05:57] LABS: BASOPHILS % (AUTO) 0.4 % (0.2-1.0); EOSINOPHILS # (AUTO) 0.1 x10^3/uL (0.0-0.2); EOSINOPHILS % (AUTO) 0.7 % (0.9-2.9); HEMATOCRIT 33.1 % (36.0-47.0); HEMOGLOBIN 10.2 g/dL (12.0-16.0); LYMPHOCYTES # (AUTO) 0.9 X10^3/uL (1.3-2.9); LYMPHOCYTES % (AUTO) 7.2 % (21.0-51.0); MEAN CORPUSCULAR HEMOGLOBIN 25.9 pg (27.0-34.0); MEAN CORPUSCULAR VOLUME 83.7 fL (80.0-100.0); MEAN PLATELET VOLUME 7.6 fL (7.4-11.0); MONOCYTES # (AUTO) 0.6 x10^3/uL (0.3-0.8); MONOCYTES % (AUTO) 5.1 % (0.0-13.0); NEUTROPHILS # (AUTO) 10.5 x10^3/uL (2.2-4.8); NEUTROPHILS % (AUTO) 86.6 % (42.0-75.0); PLATELET COUNT 623 X10^3/uL (150.0-450.0); RED BLOOD COUNT 3.95 X10^6/uL (3.5-5.4); WHITE BLOOD COUNT 12.2 X10^3/uL (3.6-10.0)
[2021-01-05 06:10] LABS: ALANINE AMINOTRANSFERASE 26 Units/L (12-78); ALBUMIN 1.7 g/dL (3.4-5.0); ALKALINE PHOSPHATASE 104 Units/L (46-116); ASPARTATE AMINO TRANSFERASE 18 Units/L (15-37); BLOOD UREA NITROGEN 10 mg/dL (7-18); CALCIUM 8.3 mg/dL (8.5-10.1); CARBON DIOXIDE 33.7 mmol/L (21-32); CHLORIDE 105 mmol/L (98-107); COR CA(FOR HYPOALB) 10.1 mg/dL (8.5-10.1); CREATININE 0.61 mg/dL (0.55-1.02); SODIUM 143 mmol/L (136-145); TOTAL PROTEIN 6.8 g/dL (6.4-8.2); eGFR NON BLACK RACES > 60 (>60)
--- NOTE | 2021-01-05 08:28 | PCM.PROG ---
Progress Note Progress Note for Day of Date of Exam: 01/05/21 Subjective Subjective: PT IS A 50 YEAR OLD FEMALE ADMITTED FOR TREATMENT OF PNEUMONIA WITH HYPOXIA. THIS MORNING, SHE IS ALERT AND ORIENTED, SITTING UP IN BED ON MORNING ROUNDS. SHE HAS BEEN IMPROVING DAILY AND LEUKOCYTOSIS TRENDING DOWN. SHE DOES CONTINUE TO HAVE SOME SHORTNESS OF BREATH AND PLEURISY. SHE IS UTILIZING OXYGEN VIA NASAL CANNULA BETWEEN 2-3 LITERS/MINUTE. HER SATURATIONS HAVE BEEN 90-94% THROUGHOUT THE NIGHT. LABS/IMAGING: WBC 12.2, HGB 10.2, PLT 623, NA 143, K 4, CREATININE 0.61, GLUCOSE 103. SPUTUM CULTURE WAS POSITIVE FOR GROWTH OF YEAST. CHEST XRAY YESTERDAY REVEALED: Cardiac silhouette is obscured at the left heart border and appears similar to prior. No significant change in bilateral airspace opacities worst at the left base and right upper lung. No discernible pneumothorax. Cannot exclude left pleural effusion. Soft tissue attenuation limits evaluation. SHE IS CURRENTLY RECEIVING NORMAL SALINE AT 75 ML/HR, VANCOMYCIN 2G IV Q8H, ZOSYN 4.5G IV TID, DIFLUCAN 200MG IV DAILY, DUONEBS Q4H, PULMICORT BID, SMART VEST, LOVENOX 40MG SC DAILY, MAGIC MOUTHWASH 5ML QID PRN, ZOFRAN 4MG IV Q6H PRN, NORVASC 10MG PO DAILY, KLONOPIN 0.5MG PO BID PRN, MILK OF MAGNESIA 30ML PO BID, NYSTATIN 5ML PO QID PRN, AND THE POTASSIUM AND MAGNESIUM PROTOCOLS, TORADOL 30MG IV Q6H FOR PAIN. WILL CONTINUE WITH CURRENT PLAN OF CARE TODAY. MONITOR AND FOLLOW UP LABS/IMAGING IN THE MORNING. Past Medical Family Social History Past Med/Fam/Surg Hx: No changes since H&P Allergies: Allergies No Known Drug Allergies Allergy (Verified 03/02/18 11:53) Review of Systems ROS: No change since H&P Vital Signs and I&O's Vital Signs: Temperature 98.2 F Pulse Rate [Apical] 96 Pulse Rate 91 Respiratory Rate 20 Blood Pressure [Left Arm] 142/65 Blood Pressure 101/58 O2 Sat by Pulse Oximetry 94 Intake and Output: Intake & Output 01/02/21 01/03/21 01/04/21 01/05/21 23:59 23:59 23:59 23:59 Intake Total 4358 / 4358 4691 / 4691 4671 / 4671 1417 / 1417 Balance 4358 / 4358 4691 / 4691 4671 / 4671 1417 / 1417 Physical Exam Oriented: Normal Eyes: Normal Ear: Normal Nose: Normal Throat: Normal Respiratory: Right, Left, Diminished and Wheezes Cardiovascular: Edema (TRACE EDEMA BLE ) : Normal Auscultation: Bowel Sounds: Normal Tenderness: Normal Skin: Normal Musculoskeletal: Normal Psychiatric: Normal Mood Description: Calm and Appropriate Affect: Normal Speech Pattern: Clear and Appropriate Laboratory and Diagnostics Result Diagrams: 01/05/21 05:13 01/05/21 05:13 Labs: 12/28/20 07:23 Blood Blood Culture - Final 12/28/20 07:18 Blood Blood Culture - Final 12/30/20 17:20 Sputum - Expectorated Sputum Sputum Culture - Final 12/30/20 17:20 Sputum - Expectorated Sputum - Final 12/29/20 16:55 Sputum - Expectorated Sputum Sputum Culture - Final 12/29/20 16:55 Sputum - Expectorated Sputum - Final Laboratory WBC 12.2 X10^3/uL (3.6-10.0) H 01/05/21 05:13 RBC 3.95 X10^6/uL (3.5-5.4) 01/05/21 05:13 Hgb 10.2 g/dL (12.0-16.0) L 01/05/21 05:13 Hct 33.1 % (36.0-47.0) L 01/05/21 05:13 MCV 83.7 fL (80.0-100.0) 01/05/21 05:13 MCH 25.9 pg (27.0-34.0) L 01/05/21 05:13 MCHC 31.0 g/dL (33.0-35.0) L 01/05/21 05:13 RDW 16.0 % (11.6-16.5) 01/05/21 05:13 Plt Count 623 X10^3/uL (150.0-450.0) H 01/05/21 05:13 Plt Count Comment Increased (ADEQUATE) A 01/01/21 04:55 MPV 7.6 fL (7.4-11.0) 01/05/21 05:13 Neut % (Auto) 86.6 % (42.0-75.0) H 01/05/21 05:13 Lymph % (Auto) 7.2 % (21.0-51.0) L 01/05/21 05:13 [place] % (Auto) 5.1 % (0.0-13.0) 01/05/21 05:13 Eos % (Auto) 0.7 % (0.9-2.9) L 01/05/21 05:13 Baso % (Auto) 0.4 % (0.2-1.0) 01/05/21 05:13 Neut # (Auto) 10.5 x10^3/uL (2.2-4.8) H 01/05/21 05:13 Lymph # (Auto) 0.9 X10^3/uL (1.3-2.9) L 01/05/21 05:13 [place] # (Auto) 0.6 x10^3/uL (0.3-0.8) 01/05/21 05:13 Eos # (Auto) 0.1 x10^3/uL (0.0-0.2) 01/05/21 05:13 Baso # (Auto) 0.0 X10^3/uL (0.0-0.1) 01/05/21 05:13 Absolute Nucleated RBC 0.1 /100WBC 01/05/21 05:13 Total Counted 100 01/01/21 04:55 Neutrophils % (Manual) 90 % (39-76) H 01/01/21 04:55 Band Neutrophils % 26 % (0-10) H 12/28/20 06:55 Lymphocytes % (Manual) 8 % (13-43) L 01/01/21 04:55 Monocytes % (Manual) 1 % (4-9) L 01/01/21 04:55 Eosinophils % (Manual) 1 % (0-6) 01/01/21 04:55 Metamyelocytes % 5 12/29/20 04:30 Plt Morphology Comment Normal (NORMAL) 01/01/21 04:55 RBC Morphology Normal (NORMAL) 01/01/21 04:55 Hypochromasia Slight A 12/29/20 04:30 PT 12.8 SECONDS (11.8-14.3) 12/28/20 06:55 INR Target Range - 12/28/20 06:55 INR 1.01 (0.8-1.3) 12/28/20 06:55 APTT 25.0 SECONDS (22.9-36.5) 12/28/20 06:55 PTT Comment - 12/28/20 06:55 D-Dimer 3.33 ug/ml (0.0-0.57) H* 12/28/20 06:55 Sample Site Rr 01/03/21 05:00 ABG pH 7.390 (7.35-7.45) 01/03/21 05:00 ABG pCO2 65.0 mmHg (35.0-45.0) H* 01/03/21 05:00 ABG pO2 60.0 mmHg (80.0-100.0) L 01/03/21 05:00 ABG HCO3 39.3 mmol/L (22-26) H* 01/03/21 05:00 ABG O2 Saturation 90.0 % (90-100) 01/03/21 05:00 ABG Base Excess 11.8 mmol/L (-2.0-2.0) H 01/03/21 05:00 Raman Test Pos 01/03/21 05:00 A-a Gradient 87.0 mmHg 01/03/21 05:00 FiO2 32.0 01/03/21 05:00 Blood Gas Comments [place] well sw 01/03/21 05:00 Sodium 143 mmol/L (136-145) 01/05/21 05:13 Corrected Sodium TNP 01/05/21 05:13 Potassium 4.0 mmol/L (3.5-5.1) 01/05/21 05:13 Chloride 105 mmol/L (98-107) 01/05/21 05:13 Carbon Dioxide 33.7 mmol/L (21-32) H 01/05/21 05:13 BUN 10 mg/dL (7-18) 01/05/21 05:13 Creatinine 0.61 mg/dL (0.55-1.02) 01/05/21 05:13 Est GFR (MDRD) Af Amer > 60 (>60) 01/05/21 05:13 Est GFR (MDRD) Non-Af > 60 (>60) 01/05/21 05:13 Glucose 103 mg/dL (65-99) H 01/05/21 05:13 POC Glucose (mg/dL) 111 mg/dL (65-99) H 12/28/20 11:53 Lactic Acid 1.1 mmol/L (0.4-2.0) 12/28/20 06:55 Calcium 8.3 mg/dL (8.5-10.1) L 01/05/21 05:13 Corrected Calcium 10.1 mg/dL (8.5-10.1) 01/05/21 05:13 Magnesium 2.2 mg/dL (1.7-2.9) 01/03/21 06:55 Total Bilirubin 0.20 mg/dL (0.2-1.0) 01/05/21 05:13 AST 18 Units/L (15-37) 01/05/21 05:13 ALT 26 Units/L (12-78) 01/05/21 05:13 Alkaline Phosphatase 104 Units/L (46-116) 01/05/21 05:13 Creatine Kinase 119 Units/L (26-192) 12/28/20 06:55 CK-MB (CK-2) < 1.0 ng/mL (0-4.0) 12/28/20 06:55 CK/CKMB % Calc 0.8 % (<4) 12/28/20 06:55 Troponin I < 0.02 ng/mL (0-1.5) 12/28/20 06:55 B-Natriuretic Peptide 97.7 pg/mL (0-79) H 12/28/20 06:55 Total Protein 6.8 g/dL (6.4-8.2) 01/05/21 05:13 Albumin 1.7 g/dL (3.4-5.0) L 01/05/21 05:13 Globulin 5.1 g/dL (2.5-4.5) H 01/05/21 05:13 Albumin/Globulin Ratio 0.3 Ratio (1.1-2.1) L 01/05/21 05:13 Vancomycin Trough 23.5 ug/mL (15-20) H* 01/04/21 15:55 Influenza Type A Ag Negative-presumptive (NEGATIVE) 12/28/20 07:38 Influenza Type B Ag Negative-presumptive (NEGATIVE) 12/28/20 07:38 SARS CoV-2 RNA Rapid MINERVA Negative (NEGATIVE) 12/28/20 07:38 Plan (1) Pneumonia: Status: Acute Qualifiers: Laterality: bilateral Lung location: unspecified part of lung Pneumonia type: due to unspecified organism Qualified Code(s): J18.9 - Pneumonia, unspecified organism Plan: Supplemental O2, Bronchodilators Antibiotics: Vancomycin + Zosyn + Diflucan (2) Dyspnea: Status: Acute Qualifiers: Dyspnea type: shortness of breath Qualified Code(s): R06.02 - Shortness of breath
[2021-01-05] MEDS: NORVASC TAB 10 MG PO SCH (08:50)
[2021-01-05] MEDS: DIFLUCAN 200 MG IV PREMIX* 200 MG/100 ML BAG IV SCH (08:50)
[2021-01-05] MEDS: NICOTINE PATCH TD SCH (08:50)
[2021-01-05] MEDS: LOVENOX INJ 40 MG SYR SC SCH (08:50)
[2021-01-05] MEDS: PULMICORT NEB TX 0.5 MG NEB SCH ×2 (09:31→20:24)
[2021-01-05] MEDS: VANCOMYCIN IV *PREMIX 2 G/400 ML BAG 2 G/400 ML PIGGYBACK IV SCH ×2 (09:45→22:06)
[2021-01-05] MEDS: MILK OF MAGNESIA PO SCH ×2 (11:59→22:07)
[2021-01-05] MEDS: KLONOPIN TAB 0.5 MG PO PRN (13:23)
[2021-01-05] MEDS: COLACE CAP 100 MG PO SCH (22:05)
[2021-01-05] MEDS: NYSTATIN SUSP PO PRN (22:07)
[2021-01-05] MEDS: ZANAFLEX PO PRN (22:08)
[2021-01-05] MEDS: RESTORIL CAP 15 MG PO PRN (22:08)
[2021-01-06] MEDS: DUONEB 0.5 MG/3 MG (3 mL) NEB SCH ×3 (00:49→08:46)
[2021-01-06] MEDS: TORADOL 30 MG VIAL IVP SCH ×2 (05:08→11:49)
[2021-01-06] MEDS: ZOSYN VIAL 4.5 GRAMS 4.5 G in NS 100 ML IV + SPIKE MINIBAG* 100 ML IV SCH (05:22)
[2021-01-06 05:42] LABS: BASOPHILS # (AUTO) 0.1 X10^3/uL (0.0-0.1); BASOPHILS % (AUTO) 0.9 % (0.2-1.0); EOSINOPHILS # (AUTO) 0.1 x10^3/uL (0.0-0.2); EOSINOPHILS % (AUTO) 1.1 % (0.9-2.9); HEMATOCRIT 33.4 % (36.0-47.0); HEMOGLOBIN 10.6 g/dL (12.0-16.0); LYMPHOCYTES # (AUTO) 1.1 X10^3/uL (1.3-2.9); LYMPHOCYTES % (AUTO) 9.4 % (21.0-51.0); MEAN CORPUSCULAR HEMOGLOBIN 26.3 pg (27.0-34.0); MEAN CORPUSCULAR HGB CONC 31.6 g/dL (33.0-35.0); MEAN CORPUSCULAR VOLUME 83.3 fL (80.0-100.0); MONOCYTES # (AUTO) 0.7 x10^3/uL (0.3-0.8); MONOCYTES % (AUTO) 6.3 % (0.0-13.0); NEUTROPHILS # (AUTO) 9.4 x10^3/uL (2.2-4.8); NEUTROPHILS % (AUTO) 82.3 % (42.0-75.0); PLATELET COUNT 697 X10^3/uL (150.0-450.0); RED BLOOD COUNT 4.01 X10^6/uL (3.5-5.4); RED CELL DISTRIBUTION WIDTH 16.4 % (11.6-16.5); WHITE BLOOD COUNT 11.4 X10^3/uL (3.6-10.0)
[2021-01-06 05:54] LABS: ALANINE AMINOTRANSFERASE 29 Units/L (12-78); ALBUMIN 1.9 g/dL (3.4-5.0); ALKALINE PHOSPHATASE 118 Units/L (46-116); ASPARTATE AMINO TRANSFERASE 18 Units/L (15-37); BLOOD UREA NITROGEN 8 mg/dL (7-18); CALCIUM 8.7 mg/dL (8.5-10.1); CARBON DIOXIDE 33.6 mmol/L (21-32); COR CA(FOR HYPOALB) 10.4 mg/dL (8.5-10.1); CREATININE 0.68 mg/dL (0.55-1.02); TOTAL PROTEIN 7.3 g/dL (6.4-8.2); eGFR NON BLACK RACES > 60 (>60)
[2021-01-06 06:22] LABS: SODIUM 140 mmol/L (136-145)
[2021-01-06 06:23] LABS: CHLORIDE 102 mmol/L (98-107)
[2021-01-06] MEDS: KLONOPIN TAB 0.5 MG PO PRN (08:42)
[2021-01-06] MEDS: MILK OF MAGNESIA PO SCH (08:42)
[2021-01-06] MEDS: NORCO 10/325 TAB PO PRN (08:43)
[2021-01-06] MEDS: NORVASC TAB 10 MG PO SCH (08:44)
[2021-01-06] MEDS: LOVENOX INJ 40 MG SYR SC SCH (08:45)
[2021-01-06] MEDS: NICOTINE PATCH TD SCH (08:46)
[2021-01-06] MEDS: PULMICORT NEB TX 0.5 MG NEB SCH (08:46)
--- NOTE | 2021-01-06 09:06 | W.DIS.FURT ---
Summary of Discharge Discharge Summary of Date Date of Exam: 01/06/21 Admission Date Date of Admission: 12/28/20 Admission Diagnosis Patient Problems (Updated 01/04/21 @ 11:44 by Beto Preston) Pneumonia (Acute) J18.9 Dyspnea (Acute) R06.00 Hospital Course: PT IS A 50 YEAR OLD FEMALE ADMITTED FOR TREATMENT OF PNEUMONIA WITH HYPOXIA. CXR POSITIVE FOR BILATERAL MULTIFOCAL PNEUMONIA. SPUTUM CULTURE WAS POSITIVE FOR YEAST. ECHO pEF. HER HOSPITAL/TREATMENT COURSE INCLUDED NORMAL SALINE AT 75 ML/HR, VANCOMYCIN 2G IV Q8H, ZOSYN 4.5G IV TID, DIFLUCAN 200MG IV DAILY, DUONEBS Q4H, PULMICORT BID, SMART VEST, LOVENOX 40MG SC DAILY, MAGIC MOUTHWASH 5ML QID PRN, ZOFRAN 4MG IV Q6H PRN, NORVASC 10MG PO DAILY, KLONOPIN 0.5MG PO BID PRN, MILK OF MAGNESIA 30ML PO BID, NYSTATIN 5ML PO QID PRN, AND THE POTASSIUM AND MAGNESIUM PROTOCOLS, TORADOL 30MG IV Q6H FOR PAIN. PT RESPONDED WELL TO TREATMENT WITH LEUKOCYTOSIS TRENDING DOWN. ON DISCHARGE HOME OXYGEN ARRANGED PATIENT STILL REQUIRED OXYGEN SUPPLEMENTATION OF 2L NASAL CANNULA. WILL NEED TO SEE PULMONOLOGY OUTPATIENT. PT WAS DISCHARGED WITH PRESCRIPTIONS OF MEDICATIONS THAT WAS STARTED IN THE HOSPITAL, PT DID NOT HAVE A PCP PRIOR TO ADMISSION OR WAS ON ANY MEDICATION. NEBULIZER AND RX DUONEBS SENT TO PHARMACY. PT DISCHARGED IN STABLE CONDITION, INSTRUCTED TO FOLLOW UP WITH A PCP IN 3-5 DAYS. Vital Signs: Vital Signs (72 hours) 01/03/21 10:00 01/03/21 11:00 01/03/21 12:00 Temperature 99.1 F Pulse Rate Pulse Rate [Apical] 93 H 93 H 94 H Respiratory Rate 28 H 34 H 29 H Blood Pressure [Left Arm] 136/69 149/94 149/75 O2 Sat by Pulse Oximetry 93 L 96 96 01/03/21 13:00 01/03/21 14:00 01/03/21 15:00 Temperature Pulse Rate Pulse Rate [Apical] 95 H 97 H 94 H Respiratory Rate 32 H 36 H 29 H Blood Pressure [Left Arm] 144/68 146/88 131/66 O2 Sat by Pulse Oximetry 94 L 92 L 93 L 01/03/21 16:00 01/03/21 17:00 01/03/21 18:00 Temperature 98.0 F Pulse Rate Pulse Rate [Apical] 86 96 H 97 H Respiratory Rate 24 35 H 30 H Blood Pressure [Left Arm] 126/61 139/73 126/65 O2 Sat by Pulse Oximetry 94 L 93 L 92 L 01/03/21 19:00 01/03/21 19:10 01/03/21 20:00 Temperature 98.2 F Pulse Rate Pulse Rate [Apical] 92 H 94 H Respiratory Rate 28 H 22 28 H Blood Pressure [Left Arm] 133/69 143/78 O2 Sat by Pulse Oximetry 94 L 94 L 01/03/21 20:10 01/03/21 20:54 01/03/21 21:00 Temperature Pulse Rate 100 H Pulse Rate [Apical] 94 H Respiratory Rate 16 26 H Blood Pressure [Left Arm] 147/67 O2 Sat by Pulse Oximetry 92 L 93 L 01/03/21 22:00 01/03/21 23:00 01/04/21 00:00 Temperature 98.2 F Pulse Rate Pulse Rate [Apical] 88 85 84 Respiratory Rate 21 22 23 Blood Pressure [Left Arm] 147/67 146/63 130/60 O2 Sat by Pulse Oximetry 94 L 94 L 94 L 01/04/21 01:00 01/04/21 02:00 01/04/21 02:58 Temperature Pulse Rate Pulse Rate [Apical] 88 88 Respiratory Rate 24 26 H 28 H Blood Pressure [Left Arm] 121/60 128/63 O2 Sat by Pulse Oximetry 93 L 93 L 01/04/21 03:00 01/04/21 03:58 01/04/21 04:00 Temperature 98.9 F Pulse Rate Pulse Rate [Apical] 92 H 100 H Respiratory Rate 26 H 26 H 26 H Blood Pressure [Left Arm] 134/65 135/63 O2 Sat by Pulse Oximetry 93 L 92 L 01/04/21 05:00 01/04/21 06:00 01/04/21 07:00 Temperature Pulse Rate Pulse Rate [Apical] 96 H 97 H 96 H Respiratory Rate 28 H 28 H 31 H Blood Pressure [Left Arm] 137/63 134/66 147/83 O2 Sat by Pulse Oximetry 90 L 93 L 91 L 01/04/21 08:00 01/04/21 08:43 01/04/21 09:00 Temperature 97.6 F Pulse Rate Pulse Rate [Apical] 105 H 93 H Respiratory Rate 35 H 28 H 32 H Blood Pressure [Left Arm] 159/72 136/64 O2 Sat by Pulse Oximetry 92 L 94 L 01/04/21 09:43 01/04/21 09:57 01/04/21 10:00 Temperature Pulse Rate 95 H Pulse Rate [Apical] 93 H Respiratory Rate 24 30 H Blood Pressure [Left Arm] 154/79 O2 Sat by Pulse Oximetry 92 L 95 01/04/21 11:00 01/04/21 12:00 01/04/21 12:52 Temperature 98.0 F Pulse Rate Pulse Rate [Apical] 93 H 91 H Respiratory Rate 31 H 26 H 26 H Blood Pressure [Left Arm] 156/71 145/69 O2 Sat by Pulse Oximetry 94 L 91 L 01/04/21 13:00 01/04/21 13:07 01/04/21 13:22 Temperature Pulse Rate 100 H Pulse Rate [Apical] 91 H Respiratory Rate 29 H 24 Blood Pressure [Left Arm] 149/70 O2 Sat by Pulse Oximetry 94 L 90 L 01/04/21 14:00 01/04/21 15:00 01/04/21 16:00 Temperature 97.5 F L Pulse Rate Pulse Rate [Apical] 94 H 86 90 Respiratory Rate 30 H 24 26 H Blood Pressure [Left Arm] 131/64 150/70 143/67 O2 Sat by Pulse Oximetry 90 L 91 L 92 L 01/04/21 17:00 01/04/21 17:34 01/04/21 18:00 Temperature Pulse Rate 90 Pulse Rate [Apical] 88 90 Respiratory Rate 30 H 24 Blood Pressure [Left Arm] 141/71 139/74 O2 Sat by Pulse Oximetry 91 L 95 96 01/04/21 18:18 01/04/21 18:48 01/04/21 19:00 Temperature Pulse Rate Pulse Rate [Apical] 91 H Respiratory Rate 24 22 26 H Blood Pressure [Left Arm] 111/58 O2 Sat by Pulse Oximetry 94 L 01/04/21 20:00 01/04/21 21:00 01/04/21 21:10 Temperature 98.2 F Pulse Rate 91 H Pulse Rate [Apical] 90 90 Respiratory Rate 26 H 24 Blood Pressure [Left Arm] 152/83 147/81 O2 Sat by Pulse Oximetry 93 L 98 93 L 01/04/21 21:18 01/04/21 22:00 01/04/21 22:18 Temperature Pulse Rate Pulse Rate [Apical] 91 H Respiratory Rate 24 28 H 24 Blood Pressure [Left Arm] 152/72 O2 Sat by Pulse Oximetry 96 01/04/21 23:00 01/05/21 00:00 01/05/21 01:00 Temperature 98.1 F Pulse Rate Pulse Rate [Apical] 91 H 85 82 Respiratory Rate 26 H 24 22 Blood Pressure [Left Arm] 157/87 157/80 137/72 O2 Sat by Pulse Oximetry 94 L 93 L 94 L 01/05/21 02:00 01/05/21 03:00 01/05/21 04:00 Temperature 98.2 F Pulse Rate Pulse Rate [Apical] 82 83 87 Respiratory Rate 20 20 18 Blood Pressure [Left Arm] 125/54 122/58 116/52 O2 Sat by Pulse Oximetry 94 L 94 L 92 L 01/05/21 05:00 01/05/21 05:18 01/05/21 06:00 Temperature Pulse Rate Pulse Rate [Apical] 86 96 H Respiratory Rate 18 24 18 Blood Pressure [Left Arm] 106/58 142/65 O2 Sat by Pulse Oximetry 93 L 94 L 01/05/21 06:18 01/05/21 07:00 01/05/21 08:00 Temperature 98.3 F Pulse Rate Pulse Rate [Apical] 87 97 H Respiratory Rate 20 20 22 Blood Pressure [Left Arm] 137/64 142/92 O2 Sat by Pulse Oximetry 95 89 L 01/05/21 09:00 01/05/21 09:31 01/05/21 10:00 Temperature Pulse Rate 96 H Pulse Rate [Apical] 96 H 99 H Respiratory Rate 20 20 Blood Pressure [Left Arm] 137/69 146/82 O2 Sat by Pulse Oximetry 91 L 92 L 91 L 01/05/21 11:00 01/05/21 12:00 01/05/21 12:12 Temperature 98.0 F Pulse Rate 94 H Pulse Rate [Apical] 94 H 91 H Respiratory Rate 18 22 Blood Pressure [Left Arm] 167/78 146/81 O2 Sat by Pulse Oximetry 90 L 94 L 97 01/05/21 12:30 01/05/21 13:00 01/05/21 13:30 Temperature Pulse Rate Pulse Rate [Apical] 96 H Respiratory Rate 22 24 20 Blood Pressure [Left Arm] 167/78 O2 Sat by Pulse Oximetry 91 L 01/05/21 14:00 01/05/21 15:00 01/05/21 16:00 Temperature 97.8 F Pulse Rate Pulse Rate [Apical] 92 H 95 H 93 H Respiratory Rate 25 H 22 28 H Blood Pressure [Left Arm] 165/74 154/72 155/75 O2 Sat by Pulse Oximetry 94 L 92 L 95 01/05/21 17:00 01/05/21 17:11 01/05/21 18:00 Temperature Pulse Rate 103 H Pulse Rate [Apical] 94 H 101 H Respiratory Rate 32 H 28 H Blood Pressure [Left Arm] 163/89 172/93 O2 Sat by Pulse Oximetry 95 94 L 93 L 01/05/21 19:00 01/05/21 20:00 01/05/21 20:24 Temperature 98.9 F Pulse Rate 99 H Pulse Rate [Apical] 96 H 99 H Respiratory Rate 28 H 26 H Blood Pressure [Left Arm] 145/88 159/74 O2 Sat by Pulse Oximetry 93 L 94 L 96 01/05/21 21:00 01/05/21 22:00 01/05/21 22:07 Temperature Pulse Rate Pulse Rate [Apical] 95 H 92 H Respiratory Rate 24 22 24 Blood Pressure [Left Arm] 169/82 171/81 O2 Sat by Pulse Oximetry 93 L 95 01/05/21 23:00 01/05/21 23:07 01/06/21 00:00 Temperature 98.1 F Pulse Rate Pulse Rate [Apical] 97 H 91 H Respiratory Rate 24 22 22 Blood Pressure [Left Arm] 161/80 171/93 O2 Sat by Pulse Oximetry 96 95 01/06/21 01:00 01/06/21 02:00 01/06/21 03:00 Temperature Pulse Rate Pulse Rate [Apical] 91 H 85 87 Respiratory Rate 23 25 H 22 Blood Pressure [Left Arm] 139/63 142/62 153/86 O2 Sat by Pulse Oximetry 94 L 92 L 95 01/06/21 04:00 01/06/21 05:00 01/06/21 05:10 Temperature 98 F Pulse Rate 88 Pulse Rate [Apical] 90 98 H Respiratory Rate 24 26 H Blood Pressure [Left Arm] 155/82 162/77 O2 Sat by Pulse Oximetry 94 L 94 L 96 01/06/21 06:00 01/06/21 08:43 Temperature Pulse Rate Pulse Rate [Apical] 93 H Respiratory Rate 24 20 Blood Pressure [Left Arm] 167/87 O2 Sat by Pulse Oximetry 94 L Labs: Laboratory Last Values WBC 11.4 X10^3/uL (3.6-10.0) H 01/06/21 04:37 RBC 4.01 X10^6/uL (3.5-5.4) 01/06/21 04:37 Hgb 10.6 g/dL (12.0-16.0) L 01/06/21 04:37 Hct 33.4 % (36.0-47.0) L 01/06/21 04:37 MCV 83.3 fL (80.0-100.0) 01/06/21 04:37 MCH 26.3 pg (27.0-34.0) L 01/06/21 04:37 MCHC 31.6 g/dL (33.0-35.0) L 01/06/21 04:37 RDW 16.4 % (11.6-16.5) 01/06/21 04:37 Plt Count 697 X10^3/uL (150.0-450.0) H 01/06/21 04:37 Plt Count Comment Increased (ADEQUATE) A 01/01/21 04:55 MPV 8.0 fL (7.4-11.0) 01/06/21 04:37 Neut % (Auto) 82.3 % (42.0-75.0) H 01/06/21 04:37 Lymph % (Auto) 9.4 % (21.0-51.0) L 01/06/21 04:37 [place] % (Auto) 6.3 % (0.0-13.0) 01/06/21 04:37 Eos % (Auto) 1.1 % (0.9-2.9) 01/06/21 04:37 Baso % (Auto) 0.9 % (0.2-1.0) 01/06/21 04:37 Neut # (Auto) 9.4 x10^3/uL (2.2-4.8) H 01/06/21 04:37 Lymph # (Auto) 1.1 X10^3/uL (1.3-2.9) L 01/06/21 04:37 [place] # (Auto) 0.7 x10^3/uL (0.3-0.8) 01/06/21 04:37 Eos # (Auto) 0.1 x10^3/uL (0.0-0.2) 01/06/21 04:37 Baso # (Auto) 0.1 X10^3/uL (0.0-0.1) 01/06/21 04:37 Absolute Nucleated RBC 0.0 /100WBC 01/06/21 04:37 Total Counted 100 01/01/21 04:55 Neutrophils % (Manual) 90 % (39-76) H 01/01/21 04:55 Band Neutrophils % 26 % (0-10) H 12/28/20 06:55 Lymphocytes % (Manual) 8 % (13-43) L 01/01/21 04:55 Monocytes % (Manual) 1 % (4-9) L 01/01/21 04:55 Eosinophils % (Manual) 1 % (0-6) 01/01/21 04:55 Metamyelocytes % 5 12/29/20 04:30 Plt Morphology Comment Normal (NORMAL) 01/01/21 04:55 RBC Morphology Normal (NORMAL) 01/01/21 04:55 Hypochromasia Slight A 12/29/20 04:30 PT 12.8 SECONDS (11.8-14.3) 12/28/20 06:55 INR Target Range - 12/28/20 06:55 INR 1.01 (0.8-1.3) 12/28/20 06:55 APTT 25.0 SECONDS (22.9-36.5) 12/28/20 06:55 PTT Comment - 12/28/20 06:55 D-Dimer 3.33 ug/ml (0.0-0.57) H* 12/28/20 06:55 Sample Site Rr 01/03/21 05:00 ABG pH 7.390 (7.35-7.45) 01/03/21 05:00 ABG pCO2 65.0 mmHg (35.0-45.0) H* 01/03/21 05:00 ABG pO2 60.0 mmHg (80.0-100.0) L 01/03/21 05:00 ABG HCO3 39.3 mmol/L (22-26) H* 01/03/21 05:00 ABG O2 Saturation 90.0 % (90-100) 01/03/21 05:00 ABG Base Excess 11.8 mmol/L (-2.0-2.0) H 01/03/21 05:00 Raman Test Pos 01/03/21 05:00 A-a Gradient 87.0 mmHg 01/03/21 05:00 FiO2 32.0 01/03/21 05:00 Blood Gas Comments [place] well sw 01/03/21 05:00 Sodium 140 mmol/L (136-145) 01/06/21 04:37 Corrected Sodium TNP 01/06/21 04:37 Potassium 4.2 mmol/L (3.5-5.1) 01/06/21 04:37 Chloride 102 mmol/L (98-107) 01/06/21 04:37 Carbon Dioxide 33.6 mmol/L (21-32) H 01/06/21 04:37 BUN 8 mg/dL (7-18) 01/06/21 04:37 Creatinine 0.68 mg/dL (0.55-1.02) 01/06/21 04:37 Est GFR (MDRD) Af Amer > 60 (>60) 01/06/21 04:37 Est GFR (MDRD) Non-Af > 60 (>60) 01/06/21 04:37 Glucose 91 mg/dL (65-99) 01/06/21 04:37 POC Glucose (mg/dL) 111 mg/dL (65-99) H 12/28/20 11:53 Lactic Acid 1.1 mmol/L (0.4-2.0) 12/28/20 06:55 Calcium 8.7 mg/dL (8.5-10.1) 01/06/21 04:37 Corrected Calcium 10.4 mg/dL (8.5-10.1) H 01/06/21 04:37 Magnesium 2.2 mg/dL (1.7-2.9) 01/03/21 06:55 Total Bilirubin 0.30 mg/dL (0.2-1.0) 01/06/21 04:37 AST 18 Units/L (15-37) 01/06/21 04:37 ALT 29 Units/L (12-78) 01/06/21 04:37 Alkaline Phosphatase 118 Units/L (46-116) H 01/06/21 04:37 Creatine Kinase 119 Units/L (26-192) 12/28/20 06:55 CK-MB (CK-2) < 1.0 ng/mL (0-4.0) 12/28/20 06:55 CK/CKMB % Calc 0.8 % (<4) 12/28/20 06:55 Troponin I < 0.02 ng/mL (0-1.5) 12/28/20 06:55 B-Natriuretic Peptide 97.7 pg/mL (0-79) H 12/28/20 06:55 Total Protein 7.3 g/dL (6.4-8.2) 01/06/21 04:37 Albumin 1.9 g/dL (3.4-5.0) L 01/06/21 04:37 Globulin 5.4 g/dL (2.5-4.5) H 01/06/21 04:37 Albumin/Globulin Ratio 0.4 Ratio (1.1-2.1) L 01/06/21 04:37 Vancomycin Trough 23.5 ug/mL (15-20) H* 01/04/21 15:55 Influenza Type A Ag Negative-presumptive (NEGATIVE) 12/28/20 07:38 Influenza Type B Ag Negative-presumptive (NEGATIVE) 12/28/20 07:38 SARS CoV-2 RNA Rapid MINERVA Negative (NEGATIVE) 12/28/20 07:38 Reason For Visit: PNEUMONIA, HYPOXEMIA Discharge Date Discharge Date: 01/06/21 Discharge Diagnosis All Active Problems (Updated 01/04/21 @ 11:44 by Beto Preston) Degenerative arthritis of left knee (Acute) Knee effusion, left (Acute) Pneumonia (Acute) Dyspnea (Acute) Plan of Treatment: Continue with present treatment and follow up plan. Pt is to keep follow up appointment as instructed and take medications as ordered. Discharge Medications Discharge Medications: No Known Drug Allergies Allergy (Verified 03/02/18 11:53) New Prescriptions amlodipine 10 mg PO DAILY 30 Days #30 tab 01/06/21 [Rx] clonazepam 0.5 mg PO BID PRN 7 Days #14 tab MDD 2 tabs 01/06/21 [Rx] fluconazole [Diflucan] 150 mg PO Q3D #2 tab 01/06/21 [Rx] hydrocodone-acetaminophen 1 tab PO Q8H PRN 7 Days #21 tab MDD 3 tabs 01/06/21 [Rx] ibuprofen 800 mg PO BID PRN #20 tab 01/06/21 [Rx] ipratropium-albuterol 3 ml NEB Q4RESP 30 Days #30 vial 01/06/21 [Rx] lidocaine HCl [Lidocaine Viscous] 5 ml MT QID PRN 7 Days #300 ml 01/06/21 [Rx] tizanidine 4 mg PO BID PRN 30 Days #60 tab 01/06/21 [Rx] Follow up and Referral Follow Up: 1 Week Discharge Disposition Discharge Disposition: HOME Discharge Condition: STABLE Discharge Plan Discharge Plan Hospital Course: PT IS A 50 YEAR OLD FEMALE ADMITTED FOR TREATMENT OF PNEUMONIA WITH HYPOXIA. CXR POSITIVE FOR BILATERAL MULTIFOCAL PNEUMONIA. SPUTUM CULTURE WAS POSITIVE FOR YEAST. ECHO pEF. HER HOSPITAL/TREATMENT COURSE INCLUDED NORMAL SALINE AT 75 ML/HR, VANCOMYCIN 2G IV Q8H, ZOSYN 4.5G IV TID, DIFLUCAN 200MG IV DAILY, DUONEBS Q4H, PULMICORT BID, SMART VEST, LOVENOX 40MG SC DAILY, MAGIC MOUTHWASH 5ML QID PRN, ZOFRAN 4MG IV Q6H PRN, NORVASC 10MG PO DAILY, KLONOPIN 0.5MG PO BID PRN, MILK OF MAGNESIA 30ML PO BID, NYSTATIN 5ML PO QID PRN, AND THE POTASSIUM AND MAGNESIUM PROTOCOLS, TORADOL 30MG IV Q6H FOR PAIN. PT RESPONDED WELL TO TREATMENT WITH LEUKOCYTOSIS TRENDING DOWN. ON DISCHARGE HOME OXYGEN ARRANGED PATIENT STILL REQUIRED OXYGEN SUPPLEMENTATION OF 2L NASAL CANNULA. WILL NEED TO SEE PULMONOLOGY OUTPATIENT. PT WAS DISCHARGED WITH PRESCRIPTIONS OF MEDICATIONS THAT WAS STARTED IN THE HOSPITAL, PT DID NOT HAVE A PCP PRIOR TO ADMISSION OR WAS ON ANY MEDICATION. NEBULIZER AND RX DUONEBS SENT TO PHARMACY. PT DISCHARGED IN STABLE CONDITION, INSTRUCTED TO FOLLOW UP WITH A PCP IN 3-5 DAYS. Patient Disposition: 01 HOME, SELF-CARE Condition: Stable Health Concerns: Post Hospitalization: new medications and changes needed to prevent readmission or further decline. Pt educated and given instructions on all concerns. Plan of Treatment: Continue with present treatment and follow up plan. Pt is to keep follow up appointment as instructed and take medications as ordered. Prescriptions: New ipratropium-albuterol 0.5 mg-3 mg(2.5 mg base)/3 mL Solution For Nebulization 3 ml NEB Q4RESP 30 Days Qty: 30 RF: 0 tizanidine 4 mg Tablet 4 mg PO BID PRN30 Days Qty: 60 RF: 0 clonazepam 0.5 mg Tablet 0.5 mg PO BID MDD 2 tabs PRN (Reason: anxiety) 7 Days Qty: 14 RF: 0 hydrocodone-acetaminophen 10-325 mg Tablet 1 tab PO Q8H MDD 3 tabs PRN (Reason: pain) 7 Days Qty: 21 RF: 0 amlodipine 10 mg Tablet 10 mg PO DAILY 30 Days Qty: 30 RF: 0 Lidocaine Viscous 2 % Solution 5 ml MT QID PRN7 Days Qty: 300 RF: 0 fluconazole [Diflucan] 150 mg tablet 150 mg PO Q3D Qty: 2 RF: 0 ibuprofen 800 mg tablet 800 mg PO BID PRN (Reason: pain) Qty: 20 RF: 0 No Action NK RF: 0 Follow ups/Referrals Follow ups/Referrals: Sekou Multani [STAFF PHYSICIAN] - 01/12/21 1:00 pm SARAN VALE [CONSULTING PHYSICIAN] - 1 WEEK Instructions Instructions: Home Oxygen Use, Adult, Steps to Quit Smoking, [id number], How to Use a Nebulizer, Adult, Hypertension, [id number], Community-Acquired Pneumonia, Adult, [id number], Probiotics Stand Alone Forms: Excuse From Work or School, Precautions for COVID19, Patient Portal, Social Distancing
[2021-01-06] MEDS: NS 1000 ML 1,000 ML IV SCH (10:48)
[2021-01-06 11:16] VITALS: BP 143/68
[2021-01-06] MEDS: VANCOMYCIN IV *PREMIX 2 G/400 ML BAG 2 G/400 ML PIGGYBACK IV SCH (11:49)
[2021-01-06] MEDS ORDERED: DIFLUCAN PO ONE (12:00)
[2021-01-06] MEDS ORDERED: PHARMACY COMMENT IV NR (20:30)
== END 2021-01-06 13:20 | disposition home or self-care (01) | DRG 195 ==
LOC: ER 06:46 → ICU 10:15
PROVIDERS: ADMIT Family Medicine; ATTEND Family Medicine
DX: G47.30 Sleep apnea, unspecified; R06.02 Shortness of breath; G47.33 Obstructive sleep apnea (adult) (pediatric); Z20.822 Contact with and (suspected) exposure to COVID-19; I10 Essential (primary) hypertension; R26.9 Unspecified abnormalities of gait and mobility; J18.8 Other pneumonia, unspecified organism